=== PATIENT | female | born 1985 | race Two or more races ===

== ENCOUNTER 2021-08-27 12:13 | Emergency (ER) | payer OTHER, SELFPAY ==
[2021-08-27 12:25] VITALS: BP 160/104; PULSE 89; RESP 19; TEMP 36.1; O2SAT 98; BMI 37.1
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
[2021-08-27] MEDS: Ibuprofen 600 MG TABLET PO (13:53)
[2021-08-27] MEDS: Acetaminophen 325 MG TABLET 975 MG PO (13:53)
== END 2021-08-27 14:33 | disposition home or self-care (01) ==
PROVIDERS: Emergency Provider Emergency Medicine Emergency Medical Services; PCP Internal Medicine
DX: S16.1XXA Strain of muscle, fascia and tendon at neck level, initial encounter (principal); S39.012A Strain of muscle, fascia and tendon of lower back, initial encounter; V43.52XA Car driver injured in collision with other type car in traffic accident, initial encounter; Y93.9 Activity, unspecified; Y92.410 Unspecified street and highway as the place of occurrence of the external cause; Y99.9 Unspecified external cause status; F17.210 Nicotine dependence, cigarettes, uncomplicated; Z71.6 Tobacco abuse counseling; Z79.899 Other long term (current) drug therapy
CPT/HCPCS: 99283

== ENCOUNTER 2023-02-16 15:57 | Outpatient (AMB) | payer OTHER, SELFPAY ==
[2023-02-16 15:57] VITALS: BP 130/88; PULSE 73; TEMP 36.7; O2SAT 98; BMI 36.3
--- NOTE | 2023-02-16 15:57 | MHC.OFFWIV ---
Intake Vital Signs 02/16/23 15:57 Height 5 ft 6 in Weight 225 lb BMI 36.3 BP 130/88 Blood Pressure Location Rt brachial Position Sitting Pulse 73 Pulse Source Pulse Oximeter Temp 98.1 F Temp Source Temporal Artery Scan Pulse Oximetry (%) 98 Oxygen Delivery Method Room Air Intake Visit Reasons: EST/headaches/throwing up when coughing Intake Note: pt is here for c/o headache, also throwing when coughing Patient Tobacco Use Status: Current everyday Tobacco user Allergies bupropion [From Wellbutrin] Allergy (Intermediate, Verified 02/16/23 16:22) changes in mood buspirone Allergy (Intermediate, Verified 02/16/23 16:22) changes in mood Medication List - Last Reconciled 02/16/23 by Juancarlos Beck MD amlodipine 5 mg PO BID 90 days blood pressure test kit-large (Quick Response BP Monitor-Large Cuff kit) As directed, check BP twice a day, and log data cholecalciferol (vitamin D3) (Dialyvite Vitamin D) 125 mcg PO DAILY cyclobenzaprine 5 mg PO TID PRN fexofenadine 180 mg PO DAILY PRN 30 days ibuprofen 600 mg PO Q8H PRN pantoprazole 40 mg PO DAILY 90 days paroxetine HCl 40 mg PO DAILY 90 days rizatriptan 10 mg PO Q2-4H PRN 30 days zolpidem 5 mg PO BEDTIME PRN 30 days Do you need a note to return to daycare/school/sports/work: Yes HPI EST/headaches/throwing up when coughing HPI Details Patient presents for a sick visit. Reporting symptoms of sinus congestion, sore throat and difficulty swallowing. Low-grade fever. No family member is sick. No recent travel. Patient reports symptoms of malaise and fatigue. [facility] Medical History Class 2 obesity with body mass index (BMI) of 37.0 to 37.9 in adult Essential hypertension SAM (generalized anxiety disorder) Hand numbness Migraine Mild recurrent major depression Right foot pain Right sided sciatica Surgical History History of appendectomy History of eye surgery History of hernia repair History of tonsillectomy Family History Father Diabetes Hypertension Mother Diabetes Hypertension Asthma Paternal Grandmother Cancer Paternal Grandmother Uterine cancer Maternal Aunt Uterine cancer Maternal Uncle Esophageal cancer Social History Housing: Apartment Alcohol intake: current Alcohol intake frequency: holidays/special occasions only Alcohol type: beer Patient Tobacco Use Status: Current everyday Tobacco user Tobacco use type: Cigarette Cigarettes Per Day: 7 e-Cigarette/Vaping Use: Never Used Second Hand Smoke Exposure: No service: No Current occupational status: employed Current occupational exposures/hazards: No Cognitive needs: No Hearing needs: No Vision needs: Yes Physical Exam Vital Signs: Last Vital Signs Temp 98.1 F 02/16/23 15:57 Pulse 73 02/16/23 15:57 BP 130/88 02/16/23 15:57 Pulse Ox 98 02/16/23 15:57 Oxygen Delivery Method Room Air 02/16/23 15:57 BMI result Body Mass Index 36.3 Const General: cooperative and healthy appearing Nutritional Appearance: well nourished Orientation/consciousness: patient oriented x3 Limitations: no limitations HEENT Head: Yes normal to inspection Eyes General: appearance normal, both eyes and all related structures Neck Neck: Yes normal visual inspection Chest Chest palpation & inspection: normal palpation of entire chest wall Resp Effort & Inspection: normal respiratory effort Neuro General: patient oriented x3 Assessment & Plan Assessment & Plan (1) Upper respiratory tract infection: Code(s): J06.9 - Acute upper respiratory infection, unspecified Plan: Antibiotics ordered. Increase fluid intake. Tylenol for aches and pains. If symptoms worsen, follow-up here for a recheck. Coding Level of Care Code Est Pt Level 3 (61104) Diagnoses Upper respiratory tract infection J06.9
== END 2023-02-16 16:33 | disposition home or self-care (01) ==
PROVIDERS: PCP Internal Medicine; Visit Provider Internal Medicine
DX: J06.9 Acute upper respiratory infection, unspecified (principal)
CPT/HCPCS: 99213

== ENCOUNTER 2023-02-24 13:20 | Outpatient (AMB) | payer OTHER, SELFPAY ==
--- NOTE | 2023-02-24 13:22 | MHC.OFFWIV ---
Intake Vital Signs 02/24/23 13:23 Height 5 ft 6 in Weight 101.605 kg BMI 36.2 BP 180/100 H Blood Pressure Location Lt brachial Position Sitting Pulse 86 Pulse Source Pulse Oximeter Temp 98.5 F Temp Source Oral Pulse Oximetry (%) 99 Oxygen Delivery Method Room Air Intake Visit Reasons: EP, migraine, congestion [phone] Intake Note: Patient here because she has had a cough, congestion, cough, diarrhea and headaches which has all been present for almost 3 weeks. Patient Tobacco Use Status: Current everyday Tobacco user Allergies bupropion [From Wellbutrin] Allergy (Intermediate, Verified 02/24/23 13:24) changes in mood buspirone Allergy (Intermediate, Verified 02/24/23 13:24) changes in mood Do you need a note to return to daycare/school/sports/work: Yes HPI HPI Comments History of Present Illness Details [id number] 37-year-old female presents with fatigue, malaise, dry cough, myalgias, headache, diffuse in nature without vision changes dizziness for the past 2-3 weeks, patient reports she just has not been feeling herself. No known sick contacts. Denies chest pain, shortness of breath, nausea, vomiting, abdominal pain, vision changes, dizziness or weakness. Took Z pack w/ little to no relief. Physical exam benign Likely viral illness versus bronchitis which is most likely. Unlikely intracranial hemorrhage, stroke, posterior stroke, meningitis, encephalitis, no signs of PE or pneumonia on exam. Patient PERC negative Patient hypertensive on exam however likely secondary to acute cough. Plan at this time supportive measures COVID testing. In Educated patient on diagnosis and treatment plan, answered all question, patient verbalizes understanding. At this time patient will be discharged home, advised to return with new or worsening symptoms. Educated on worrisome signs and symptoms and when to return. At this time I feel comfortable discharge home. [facility] Medical History SAM (generalized anxiety disorder) Mild recurrent major depression Hand numbness Right sided sciatica Class 2 obesity with body mass index (BMI) of 37.0 to 37.9 in adult Right foot pain Essential hypertension Migraine Surgical History History of eye surgery History of hernia repair History of tonsillectomy History of appendectomy Family History Father Diabetes Hypertension Mother Diabetes Hypertension Asthma Paternal Grandmother Cancer Paternal Grandmother Uterine cancer Maternal Aunt Uterine cancer Maternal Uncle Esophageal cancer Social History Housing: Apartment Alcohol intake: current Alcohol intake frequency: holidays/special occasions only Alcohol type: beer Patient Tobacco Use Status: Current everyday Tobacco user Tobacco use type: Cigarette Cigarettes Per Day: 7 e-Cigarette/Vaping Use: Never Used Second Hand Smoke Exposure: No service: No Current occupational status: employed Current occupational exposures/hazards: No Cognitive needs: No Hearing needs: No Vision needs: Yes Review of Systems Const Details: Constitutional : No Weight loss, No Fever, No Chills, + Fatigue, + Malaise ENT/Mouth : No sore throat, No Rhinorrhea Eyes: No Eye Pain, No Swelling, No Redness Cardiovascular : No Chest Pain, No SOB, No Dyspnea on Exertion, No Orthopnea, No Edema, No Palpitations Respiratory : + Cough, No Sputum, No Wheezing Gastrointestinal : No Nausea, No Vomiting, No Diarrhea, No Constipation, No abdominal Pain, No Hematochezia, No Melena Genitourinary : No Dysuria, No Urinary Frequency, No Hematuria, Musculoskeletal : No joint pain, No Myalgias, No Joint Swelling Skin : No Skin Lesions, No rash Neuro : No Weakness, No Numbness, No Dizziness, + Headache Psych : No Anxiety/Panic, No Depression All other systems reviewed and are negative All systems reviewed & are unremarkable except as noted in HPI and below Physical Exam Vital Signs: Last Vital Signs Temp 98.5 F 02/24/23 13:23 Pulse 86 02/24/23 13:23 BP 180/100 H 02/24/23 13:23 Pulse Ox 99 02/24/23 13:23 Oxygen Delivery Method Room Air 02/24/23 13:23 BMI result Body Mass Index 36.2 Vital signs stable Appearance: Alert.? Oriented X3.? No acute distress.? Head: Normocephalic, atraumatic, no step-offs or deformities Eyes: Pupils equal, round and reactive to light.? Neck: Normal inspection.? Neck supple.? CVS: Normal heart rate and rhythm.? Pulses normal.? Respiratory: No respiratory distress.? Breath sounds normal.? Abdomen: Soft and nontender.? Skin: Skin warm and dry.? Normal skin color.? Normal skin turgor.? Extremities: No lower extremity edema.? No calf ttp. 5/5 strength to bilateral upper and lower extremities Neuro: Oriented X 3.? No motor deficit.? No sensory deficit. CN 2-12 intact . Ambulating steady gait normal coordination., [id number], [id number]. Assessment & Plan Assessment & Plan (1) Viral illness: Code(s): B34.9 - Viral infection, unspecified (2) Bronchitis: Code(s): J40 - Bronchitis, not specified as acute or chronic Plan Take your medications as prescribed. If you were prescribed antibiotics today, it is important that you take your medication to their entirety, do not skip any doses, do not finish them early. Follow-up with your primary care provider this week. Return to the emergency department with new or worsening symptoms. Such as fevers, chills, chest pain, shortness of breath, nausea, vomiting, dizziness, headache, vision changes, lethargy In case of emergency call 911 Orders: Orders [facility]axNOW Covid-19 Today B34.9 - Viral infection, unspecified Medications: New doxycycline hyclate 100 mg PO BID 14 caps 0RF 7 days prednisone 40 mg (2 x 20 mg) PO DAILY 10 tabs 0RF 5 days albuterol sulfate 90 mcg/actuation 2 puffs inhalation Q6H PRN 6.7 grams 0RF shortness of breath or wheezing Coding Level of Care Code Est Pt Level 3 (60699) Diagnoses Viral illness B34.9 Bronchitis J40
[2023-02-24 13:23] VITALS: BP 180/100; PULSE 86; TEMP 36.9; O2SAT 99; BMI 36.2
== END 2023-02-24 13:44 | disposition home or self-care (01) ==
PROVIDERS: PCP Internal Medicine; Visit Provider Physician Assistant
DX: B34.9 Viral infection, unspecified (principal); J40 Bronchitis, not specified as acute or chronic
CPT/HCPCS: 99213

== ENCOUNTER 2023-03-03 16:44 | Outpatient (AMB) | payer OTHER, SELFPAY ==
[2023-03-03 16:46] VITALS: BP 150/80; PULSE 88; O2SAT 100; BMI 35.9
--- NOTE | 2023-03-03 16:46 | MHC.PC.OV ---
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 Accompanied by: Self / Same As Patient Allergies bupropion [From Wellbutrin] Allergy (Intermediate, Verified 03/03/23 17:05) changes in mood buspirone Allergy (Intermediate, Verified 03/03/23 17:05) changes in mood Medication List - Last Reconciled 03/03/23 by Dori Lee MD albuterol sulfate 90 mcg/actuation 2 puffs inhalation Q6H PRN amlodipine 5 mg PO BID 90 days blood pressure test kit-large (Quick Response BP Monitor-Large Cuff kit) As directed, check BP twice a day, and log data cholecalciferol (vitamin D3) (Dialyvite Vitamin D) 125 mcg PO DAILY fexofenadine 180 mg PO DAILY PRN 30 days pantoprazole 40 mg PO DAILY 90 days paroxetine HCl 40 mg PO DAILY 90 days rizatriptan 10 mg PO Q2-4H PRN 30 days Tobacco use date assessed: 10/14/22 Dental Screening Dental Screen Date: 03/03/23 Did you have a dental visit in the last 12 months?: Yes Did you have a dental problem in the last 6 months where you did not have access to dental care?: No Was dental information given to patient?: Patient has dentist HPI HPI Comments History of Present Illness Details This is a 37-year-old female with hypertension, migraines, chronic GERD and mild recurrent major depression that comes today complaining of cough and chest congestion that has been present for over 2 weeks. She has been at urgent care twice and was prescribed Z-Devan the 1st time and then doxycycline which she Benedict completed. She was diagnosed with bronchitis. Feels markedly improved but still has cough. Blood pressure elevated because she complains of constant nausea and vomiting. Blood pressure will be recheck in 3 weeks by nurse navigator. Migraines stable with triptans as needed. GERD also stable with medications. Depression well controlled with paroxetine. No chest pain or shortness of breath. [facility] Medical History SAM (generalized anxiety disorder) Mild recurrent major depression Hand numbness Right sided sciatica Class 2 obesity with body mass index (BMI) of 37.0 to 37.9 in adult Right foot pain Essential hypertension Migraine Surgical History History of eye surgery History of hernia repair History of tonsillectomy History of appendectomy Family History Father Diabetes Hypertension Mother Diabetes Hypertension Asthma Paternal Grandmother Cancer Paternal Grandmother Uterine cancer Maternal Aunt Uterine cancer Maternal Uncle Esophageal cancer Social History Housing: Apartment Alcohol intake: current Alcohol intake frequency: holidays/special occasions only Alcohol type: beer Patient Tobacco Use Status: Current everyday Tobacco user Tobacco use type: Cigarette Cigarettes Per Day: 7 e-Cigarette/Vaping Use: Never Used Second Hand Smoke Exposure: No service: No Current occupational status: employed Current occupational exposures/hazards: No Cognitive needs: No Hearing needs: No Vision needs: Yes Questionnaire Thrive Questionnaire Date Thrive assessed: 09/03/22 SAM-7 AMB Questionnaire SAM-7 Date SAM - 7 assessed: 09/03/22 Source: Developed by Drs. Jose Glez, Mary Garcia, Evan Hernandez and colleagues, with an educational radha from [employer] Review of Systems Const All systems reviewed & are unremarkable except as noted in HPI and below Eyes Reports no additional complaints, Denies change in vision and Denies other visual disturbances Card Denies chest pain at rest, Denies chest pain with activity, Denies edema, Denies irregular heart rhythm, Denies claudication, Denies dyspnea, Denies dyspnea on exertion, Denies orthopnea, Denies paroxysmal nocturnal dyspnea and Denies slow heart rate Resp Reports cough, Denies dyspnea and Denies dyspnea on exertion GI Denies abdominal pain, Denies change in bowel habits, Denies excessive flatus, Denies nausea and Denies vomiting Denies urinary incontinence, Denies urinary hesitancy and Denies urinary urgency Musc Denies abnormal gait, Denies atrophy, Denies deformity and Denies limited range of motion Skin/Breast Denies bleeding lesions, Denies changing lesions and Denies rash Neuro Denies abnormal gait and Denies lack of coordination Physical exam (Primary Care) Vital Signs: Last Vital Signs Pulse 88 03/03/23 16:46 BP 150/80 H 03/03/23 16:46 Pulse Ox 100 03/03/23 16:46 Oxygen Delivery Method Room Air 03/03/23 16:46 BMI result Body Mass Index 35.9 Tobacco/Smoking Status: Tobacco use Status Tobacco use date assessed 10/14/22 03/03/23 16:55 Patient Tobacco Use Status Current everyday Tobacco 03/03/23 16:55 Tobacco use type Cigarette 03/03/23 16:55 e-Cigarette/Vaping Use Never Used 03/03/23 16:55 Thrive Assessment: Date of Thrive Assessment Date Thrive assessed 09/03/22 03/03/23 16:55 Eyes General: appearance normal, both eyes and all related structures Eyelids: Yes eyelids normal Conjunctivae: conjunctivae normal Neck Neck: Yes normal visual inspection and Yes supple Resp Effort & Inspection: normal respiratory effort Auscultation: clear to auscultation bilaterally Cardio Jugular venous distension: no JVD Rate: regular rate Rhythm: regular rhythm Heart sounds: S1 normal heart sound present and S2 normal heart sound present Extrem General: Yes full ROM Office Procedures Flu Questionnaire Does the patient have a severe egg allergy?: No Does the patient have severe life threatening allergies?: No Does the patient have a fever or illness today?: No Has the patient ever had Guillain-[place] Syndrome?: No Has the patient ever had any past reaction to a flu shot?: No Immunizations flu vacc [id number] 6mos up(PF) 60 mcg(15 mcgx4)/0.5 mL IM syringe Performing Provider: Dori Lee MD Performing Location: [facility] [place] [facility] Documented (not given) by: LIN Garg on 03/03/23 16:56 Reason Not Given: Patient Refused Assessment and Plan Assessment & Plan (1) Mild recurrent major depression: Code(s): F33.0 - Major depressive disorder, recurrent, mild Plan: Continue paroxetine. (2) Essential hypertension: Code(s): I10 - Essential (primary) hypertension Plan: Restart amlodipine. Blood pressure goal is equal or less than 130/80. Recheck blood pressure with nurse navigator in 3 weeks. (3) Chronic GERD: Code(s): K21.9 - Gastro-esophageal reflux disease without esophagitis Plan: Continue PPIs as needed. (4) Migraine: Code(s): G43.909 - Migraine, unspecified, not intractable, without status migrainosus Qualifiers: Migraine type: without aura Status migrainosus presence: with status migrainosus Intractability: intractable Qualified Code(s): G43.011 - Migraine without aura, intractable, with status migrainosus Plan: Continue rizatriptan as needed. Orders: Orders Influenza [id number] Immunization Today Z23 - Encounter for immunization Medications: New benzonatate 100 mg PO TID 5 days PRN 15 caps 0RF cough promethazine 25 mg PO TID 30 days PRN 90 tabs 0RF nausea and vomiting Coding Level of Care Code Est Pt Level 4 (58263) Diagnoses Mild recurrent major depression F33.0 Essential hypertension I10 Chronic GERD K21.9 Intractable migraine without aura and with status migrainosus G43.011 Migraine type: without aura Status migrainosus presence: with status migrainosus Intractability: intractable Time Spent (min) 23
[2023-03-03 19:11] VITALS: BP 150/80
== END 2023-03-03 17:13 | disposition home or self-care (01) ==
PROVIDERS: PCP Internal Medicine; Visit Provider Internal Medicine
DX: F33.0 Major depressive disorder, recurrent, mild (principal); I10 Essential (primary) hypertension; K21.9 Gastro-esophageal reflux disease without esophagitis; G43.011 Migraine without aura, intractable, with status migrainosus; Z23 Encounter for immunization
CPT/HCPCS: 99214

== ENCOUNTER 2023-04-28 16:21 | Outpatient (AMB) | payer OTHER, SELFPAY ==
--- NOTE | 2023-04-28 16:23 | A.OFFPC_ITS ---
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 Required: No Accompanied by: Self / Same As Patient Allergies bupropion [From Wellbutrin] Allergy (Intermediate, Verified 04/28/23 16:35) changes in mood buspirone Allergy (Intermediate, Verified 04/28/23 16:35) changes in mood Medication List - Last Reconciled 04/28/23 by Dori Lee MD albuterol sulfate 90 mcg/actuation 2 puffs inhalation Q6H PRN amlodipine 5 mg PO BID 90 days benzonatate 100 mg PO TID PRN 5 days blood pressure test kit-large (Quick Response BP Monitor-Large Cuff kit) As directed, check BP twice a day, and log data cholecalciferol (vitamin D3) (Dialyvite Vitamin D) 125 mcg PO DAILY fexofenadine 180 mg PO DAILY PRN 30 days pantoprazole 40 mg PO DAILY 90 days paroxetine HCl 40 mg PO DAILY 90 days promethazine 25 mg PO TID PRN 30 days rizatriptan 10 mg PO Q2-4H PRN 30 days Tobacco use date assessed: 10/14/22 Dental Screening Dental Screen Date: 04/28/23 Did you have a dental visit in the last 12 months?: Yes Did you have a dental problem in the last 6 months where you did not have access to dental care?: No Was dental information given to patient?: Patient has dentist HPI HPI Comments History of Present Illness Details This is a 37-year-old female that comes for her physical exam. She has mild recurrent major depression stable with paroxetine but would like decreased. Last Pap smear was over 5 years ago. No chest pain or shortness of breath. [facility] Medical History (Updated 04/28/23 @ 16:46 by Dori Lee MD) SAM (generalized anxiety disorder) Mild recurrent major depression Hand numbness Right sided sciatica Class 2 obesity with body mass index (BMI) of 37.0 to 37.9 in adult Right foot pain Essential hypertension Migraine Surgical History History of eye surgery History of hernia repair History of tonsillectomy History of appendectomy Family History Father Diabetes Hypertension Mother Diabetes Hypertension Asthma Paternal Grandmother Cancer Paternal Grandmother Uterine cancer Maternal Aunt Uterine cancer Maternal Uncle Esophageal cancer Social History (Updated 04/28/23 @ 16:39 by Dori Lee MD) Housing: Apartment Alcohol intake: current Alcohol intake frequency: holidays/special occasions only Alcohol type: beer Patient Tobacco Use Status: Current everyday Tobacco user Tobacco use type: Cigarette Cigarettes Per Day: 3 e-Cigarette/Vaping Use: Never Used Second Hand Smoke Exposure: No service: No Current occupational status: employed Current occupational exposures/hazards: No Cognitive needs: No Hearing needs: No Vision needs: Yes Questionnaire Thrive Questionnaire Date Thrive assessed: 09/03/22 SAM-7 AMB Questionnaire SAM-7 Date SAM - 7 assessed: 09/03/22 Source: Developed by Drs. Jose Glez, Mary Garcia, Evan Hernandez and colleagues, with an educational radha from [employer]. Review of Systems Const All systems reviewed & are unremarkable except as noted in HPI and below Eyes Reports no additional complaints, Denies change in vision and Denies other visual disturbances Card Denies chest pain at rest, Denies chest pain with activity, Denies edema, Denies irregular heart rhythm, Denies claudication, Denies dyspnea, Denies dyspnea on exertion, Denies orthopnea, Denies paroxysmal nocturnal dyspnea and Denies slow heart rate Resp Denies cough, Denies dyspnea and Denies dyspnea on exertion GI Denies abdominal pain, Denies change in bowel habits, Denies excessive flatus, Denies nausea and Denies vomiting Denies urinary incontinence, Denies urinary hesitancy and Denies urinary urgency Musc Denies abnormal gait, Denies atrophy, Denies deformity and Denies limited range of motion Skin/Breast Denies bleeding lesions, Denies changing lesions and Denies rash Neuro Denies abnormal gait and Denies lack of coordination Physical exam (Primary Care) Vital Signs: Last Vital Signs BP 128/90 H 04/28/23 16:25 BMI result Body Mass Index 35.5 Tobacco/Smoking Status: Tobacco use Status Tobacco use date assessed 10/14/22 04/28/23 16:23 Patient Tobacco Use Status Current everyday Tobacco 04/28/23 16:23 Tobacco use type Cigarette 04/28/23 16:23 e-Cigarette/Vaping Use Never Used 04/28/23 16:23 Thrive Assessment: Date of Thrive Assessment Date Thrive assessed 09/03/22 04/28/23 16:23 Const Orientation/consciousness: patient oriented x3 HENMT Head: Yes normal to inspection, Yes normocephalic and Yes atraumatic Ears: external ears normal Eyes General: appearance normal, both eyes and all related structures Eyelids: Yes eyelids normal Conjunctivae: conjunctivae normal Neck Neck: Yes normal visual inspection and Yes supple Resp Effort & Inspection: normal respiratory effort Auscultation: clear to auscultation bilaterally Cardio Jugular venous distension: no JVD Rate: regular rate Rhythm: regular rhythm Heart sounds: S1 normal heart sound present and S2 normal heart sound present GI Inspection: Yes normal to inspection Palpation (GI): Soft to palpation and nontender Auscultation: normal bowel sounds Skin General skin exam: no rashes or lesions noted Neuro General: patient oriented x3 and no focal motor deficits Extrem General: Yes full ROM Psych Appearance: grossly normal Assessment and Plan Assessment & Plan (1) Physical exam: Code(s): Z00.00 - Encounter for general adult medical examination without abnormal findings Plan: Repeat in a year. (2) Mild recurrent major depression: Code(s): F33.0 - Major depressive disorder, recurrent, mild Plan: Decrease paroxetine to 30 mg. Orders: Orders Complete Blood Count Auto Diff Today D64.9 - Anemia, unspecified Comprehensive [place]. Panel Fast Today Z00.00 - Encounter for general adult medical examination without abnormal findings IRON PROFILE Today D64.9 - Anemia, unspecified Vitamin D 25-OH Total Today E55.9 - Vitamin D deficiency, unspecified Referrals [facility] Referral Z12.4 - Encounter for screening for malignant neoplasm of cervix Medications: New tizanidine 4 mg PO BEDTIME 10 days PRN 10 tabs 0RF muscle spasticity M54.31 - Sciatica, right side paroxetine HCl 30 mg PO DAILY 90 days 90 tabs 1RF F33.0 - Major depressive disorder, recurrent, mild Discontinued paroxetine HCl Discontinued Reason: Patient Completed Course 40 mg PO DAILY 90 days 90 tabs 1RF Coding Level of Care Code Est Pt Prev Care 18-39y(38085) Diagnoses Physical exam Z00.00 Mild recurrent major depression F33.0 Time Spent (min) 31
[2023-04-28 16:25] VITALS: BP 128/90; BMI 35.5
== END 2023-04-28 16:48 | disposition home or self-care (01) ==
PROVIDERS: Visit Provider Internal Medicine
DX: Z00.00 Encounter for general adult medical examination without abnormal findings (principal); F33.0 Major depressive disorder, recurrent, mild
CPT/HCPCS: 99395

== ENCOUNTER 2023-07-20 09:12 | Outpatient (AMB) | payer OTHER, SELFPAY ==
--- NOTE | 2023-07-20 10:59 | AM.OFFWIN_ITS ---
Intake Vital Signs 07/20/23 11:09 Weight 218 lb 4 oz BP 140/90 H Blood Pressure Location Rt brachial Position Sitting Pulse 90 Pulse Source Pulse Oximeter Temp 98.7 F Temp Source Oral Pulse Oximetry (%) 100 Oxygen Delivery Method Room Air Intake Visit Reasons: EST/throat and ear pain ([id number]) Intake Note: Patient here for sore throat, bilat ear pain,vomiting, diarrhea and body aches since wednesday. Patient Tobacco Use Status: Current everyday Tobacco user Allergies bupropion [From Wellbutrin] Allergy (Intermediate, Verified 07/20/23 11:00) changes in mood buspirone Allergy (Intermediate, Verified 07/20/23 11:00) changes in mood Do you need a note to return to daycare/school/sports/work: Yes HPI HPI Comments History of Present Illness Details Patient is a 37-year-old female in today for sick visit. Patient states that for the past 9 days she has developed symptoms of sore throat, sinus tenderness, headache, itchy eyes. She has several sick contacts at home with similar symptoms. States that several people have strep throat at home. She has intermittent fever and chills. She has had 2 episodes of vomiting. Denies dizziness, chest pain, shortness a breath, diarrhea, numbness. Will obtain strep swab, upper respiratory swab, blood draw. [facility] Medical History SAM (generalized anxiety disorder) Mild recurrent major depression Hand numbness Right sided sciatica Class 2 obesity with body mass index (BMI) of 37.0 to 37.9 in adult Right foot pain Essential hypertension Migraine Surgical History History of eye surgery History of hernia repair History of tonsillectomy History of appendectomy Family History Father Diabetes Hypertension Mother Diabetes Hypertension Asthma Paternal Grandmother Cancer Paternal Grandmother Uterine cancer Maternal Aunt Uterine cancer Maternal Uncle Esophageal cancer Social History Housing: Apartment Alcohol intake: current Alcohol intake frequency: holidays/special occasions only Alcohol type: beer Patient Tobacco Use Status: Current everyday Tobacco user Tobacco use type: Cigarette Cigarettes Per Day: 3 e-Cigarette/Vaping Use: Never Used Second Hand Smoke Exposure: No service: No Current occupational status: employed Current occupational exposures/hazards: No Cognitive needs: No Hearing needs: No Vision needs: Yes Review of Systems Const Details: Constitutional : No Weight loss, Admits Fever, Admits Chills, No Fatigue, No Malaise ENT/Mouth : Admits sore throat, No Rhinorrhea, Admits ear fullness. Eyes: No Eye Pain, No Swelling, No Redness, Admits itchy eyes. Cardiovascular : No Chest Pain, No SOB, No Dyspnea on Exertion, No Orthopnea, No Edema, No Palpitations Respiratory : No Cough, No Sputum, No Wheezing Gastrointestinal : Admits Nausea, Admits some Vomiting, No Diarrhea, No Constipation, No abdominal Pain, No Hematochezia, No Melena Neuro : No Weakness, No Numbness, No Dizziness, No Headache Psych : No Anxiety/Panic, No Depression All other systems reviewed and are negative Physical Exam Vital Signs: Last Vital Signs Temp 98.7 F 07/20/23 11:09 Pulse 90 07/20/23 11:09 BP 140/90 H 07/20/23 11:09 Pulse Ox 100 07/20/23 11:09 Oxygen Delivery Method Room Air 07/20/23 11:09 Const Other: Appearance: Alert.? Oriented X3.? Head: Normocephalic, atraumatic. Eyes: Pupils equal, round and reactive to light.?No erythema or discharge. ENT: Pharynx erythema, cobblestoned. +Petechiae. TM intact and pearly kenney. Neck: Normal inspection.? Neck supple.?Full ROM. CVS: Normal heart rate and rhythm.? Pulses normal.? Respiratory: No respiratory distress.? Breath sounds normal.? Neuro: Oriented X 3.? No motor deficit.? No sensory deficit. CN 2-12 intact Results AMB Rapid Strep AMB Rapid Strep Negative Last Edit by YNASIA Rios on 07/20/23 11:15 Results Reviewed Results Reviewed: Laboratory Last Values Strep Scn Rapid [facility] Negative 07/20/23 11:14 Assessment & Plan Assessment & Plan (1) Strep throat: Comment: Patient will be given Augmentin, prednisone. Patient has been educated on the side effects of these medications. Code(s): J02.0 - Streptococcal pharyngitis Plan: Take your medications as prescribed. If you were prescribed antibiotics today, it is important that you take your medication to their entirety, do not skip any doses, do not finish them early. Follow-up with your primary care provider this week. Return to the emergency department with new or worsening symptoms. Such as fevers, chills, chest pain, shortness of breath, nausea, vomiting, dizziness, headache, vision changes, lethargy In case of emergency call 911 Plan Patient has been withholding amlodipine for the past several days believing it has caused episodes of vomiting. Patient has been instructed to go back on the amlodipine. Some when the CBC results reflex patient was demonstrated to have hemoglobin of 7.9 hematocrit of 29. This is a change from previous labs drawn several years prior. Patient has been instructed to go to the emergency room she has agreed, the [place] emergency room has been notified of the expect. Orders: Orders AMB Rapid Strep Screen Today Z13.9 - Encounter for screening, unspecified Roslyn Duran PA-C SARS-CoV2/FLU/RSV Today J06.9 - Acute upper respiratory infection, unspecified WAYNE Devries Complete Blood Count Auto Diff Today Z13.0 - Encounter for screening for diseases of the blood and blood-forming organs and certain disorders involving the immune mechanism WAYNE Devries Comprehensive Met. Panel Today Z91.89 - Other specified personal risk factors, not elsewhere classified WAYNE Devries Medications: New prednisone 20 mg PO BID 10 tabs 0RF WAYNE Devries olopatadine 0.1% (Pataday Twice Daily Relief) separate doses by at least 6-8 hours 1 drp ophthalmic (eye) BID 5 mL 0RF WAYNE Devries amoxicillin-pot clavulanate 875-125 mg 1 tab PO Q12H 14 tabs 0RF WAYNE Devries Coding Level of Care Code Est Pt Level 3 (15683) Diagnoses Strep throat J02.0 Time Spent (min) 25
[2023-07-20 11:09] VITALS: BP 140/90; PULSE 90; TEMP 37.1; O2SAT 100
== END 2023-07-20 11:33 | disposition home or self-care (01) ==
PROVIDERS: PCP Internal Medicine; Visit Provider Nurse Practitioner Primary Care
DX: J02.0 Streptococcal pharyngitis (principal)
CPT/HCPCS: 87880; 99213

== ENCOUNTER 2023-07-20 11:30 | Outpatient (REF) | payer OTHER, SELFPAY ==
[2023-07-20 13:34] LABS: Hematocrit 29.3 % (37.0-47.0); Imm Gran Abs Auto 0.03 X10*3/uL (0.00-0.03); Imm Gran Pct Auto 0.4 % (0.0-0.4); Monocytes Percent Auto 9.5 % (2-11)
[2023-07-20 13:36] LABS: Basophils Absolute Auto 0.1 X10*3/uL (0.0-0.2); Basophils Percent Auto 0.9 % (0-2); Eosinophils Absolute Auto 0.2 X10*3/uL (0.0-0.4); Eosinophils Percent Auto 2.9 % (0-4); Hemoglobin 7.6 g/dl (12.0-16.0); Lymphocytes Absolute Auto 1.8 X10*3/uL (1.2-4.9); Lymphocytes Percent Auto 24.3 % (20-40); Mean Corpuscular HGB Conc 25.9 g/dl (31.0-35.0); Mean Corpuscular Hemoglobin 15.3 pg (27.0-33.0); Monocytes Absolute Auto 0.7 X10*3/uL (0.1-1.2); Neutrophils Absolute Auto 4.7 x10*3/uL (2.0-8.3); Platelet Count 489 X10*3/uL (160-400); Red Blood Count 4.98 X10*6/uL (4.20-5.50); Red Cell Distribution Width 21.8 % (11.0-16.0); White Blood Count 7.5 X10*3/uL (4.8-10.8)
[2023-07-20 13:44] LABS: Alanine Aminotransferase 12 U/L (0-31); Albumin Level 4.1 g/dL (3.5-5.0); Alkaline Phosphatase 72 U/L (39-117); Anion Gap 10 (12-20); Aspartate Amino Transferase 14 U/L (5-31); Bilirubin Total 0.2 mg/dL (0.0-1.0); Blood Urea Nitrogen 6 mg/dL (9-16); Calcium 9.6 mg/dL (8.4-10.2); Carbon Dioxide 28 mmol/L (22-29); Chloride 107 mmol/L (96-108); Estimated Glomerular Filt Rate > 60; Glucose Random 130 mg/dL (60-115); Potassium 3.7 mmol/L (3.3-5.1); Sodium 141 mmol/L (135-145); Total Protein 7.4 g/dL (6.5-8.0)
[2023-07-20 13:45] LABS: Mean Corpuscular Volume 58.8 fL (80.0-98.0)
[2023-07-20 15:41] LABS: Influenza A PCR NEGATIVE (Negative); Influenza B PCR NEGATIVE (Negative); Resp Syncy Virus RNA Qual PCR NEGATIVE (Negative); SARS COV2 PCR INHOUSE NEGATIVE (Negative)
== END 2023-07-20 11:31 | disposition home or self-care (01) ==
LOC: HO.HMGCLDS 11:30
PROVIDERS: PCP Internal Medicine; Visit Provider Nurse Practitioner Primary Care
DX: Z11.52 Encounter for screening for COVID-19 (principal); Z20.822 Contact with and (suspected) exposure to COVID-19; Z13.0 Encounter for screening for diseases of the blood and blood-forming organs and certain disorders involving the immune mechanism; J06.9 Acute upper respiratory infection, unspecified; Z91.89 Other specified personal risk factors, not elsewhere classified
CPT/HCPCS: 0241U; 36415; 80053; 85025

== ENCOUNTER 2023-07-21 08:51 | Outpatient (REF) | payer OTHER, SELFPAY ==
[2023-07-21 09:05] LABS: MANUAL DIFF FLAG NO
[2023-07-21 10:39] LABS: Basophils Absolute Auto 0.1 X10*3/uL (0.0-0.2); Basophils Percent Auto 0.8 % (0-2); Eosinophils Absolute Auto 0.2 X10*3/uL (0.0-0.4); Eosinophils Percent Auto 3.7 % (0-4); Hematocrit 28.9 % (37.0-47.0); Hemoglobin 7.4 g/dl (12.0-16.0); Imm Gran Abs Auto 0.02 X10*3/uL (0.00-0.03); Imm Gran Pct Auto 0.3 % (0.0-0.4); Lymphocytes Absolute Auto 1.7 X10*3/uL (1.2-4.9); Lymphocytes Percent Auto 27.9 % (20-40); Mean Corpuscular HGB Conc 25.6 g/dl (31.0-35.0); Mean Corpuscular Hemoglobin 15.4 pg (27.0-33.0); Mean Corpuscular Volume 60.1 fL (80.0-98.0); Mean Platelet Volume 10.6 fL (9.4-12.3); Monocytes Absolute Auto 0.6 X10*3/uL (0.1-1.2); Neutrophils Absolute Auto 3.6 x10*3/uL (2.0-8.3); Neutrophils Percent Auto 58.3 % (45-73); Platelet Count 470 X10*3/uL (160-400); Red Blood Count 4.81 X10*6/uL (4.20-5.50); Red Cell Distribution Width 21.8 % (11.0-16.0); White Blood Count 6.1 X10*3/uL (4.8-10.8)
[2023-07-21 11:13] LABS: Alanine Aminotransferase 12 U/L (0-31); Albumin Level 4.1 g/dL (3.5-5.0); Alkaline Phosphatase 69 U/L (39-117); Anion Gap 12 (12-20); Aspartate Amino Transferase 13 U/L (5-31); Bilirubin Total 0.3 mg/dL (0.0-1.0); Blood Urea Nitrogen 7 mg/dL (9-16); Calcium 9.6 mg/dL (8.4-10.2); Carbon Dioxide 26 mmol/L (22-29); Chloride 106 mmol/L (96-108); Cholesterol 149 mg/dL (<200); Estimated Glomerular Filt Rate > 60; Glucose Fasting 98 mg/dL (60-99); HDL Cholesterol 59 mg/dL (>40); Iron 13 mcg/dL (30-160); LDL Cholesterol Calculated 76 mg/dL (<100); Percent Iron Saturation 4 % (15-50); Potassium 4.2 mmol/L (3.3-5.1); Sodium 140 mmol/L (135-145); Total Iron Binding Capacity 313 mcg/dL (228-428); Total Protein 7.3 g/dL (6.5-8.0); Triglycerides 73 mg/dL (<150); Unsaturated Iron Binding 300 ug/dL
[2023-07-21 11:14] LABS: Vitamin D 25-OH Total 44.1 ng/mL (>30)
[2023-07-21 15:10] LABS: Folate 14.1 ng/mL (> or = 4.0); Vitamin B12 1129 pg/mL (200-900)
== END 2023-07-21 08:52 | disposition home or self-care (01) ==
LOC: HO.LAB 08:51
PROVIDERS: PCP Internal Medicine; Visit Provider Internal Medicine
DX: D64.9 Anemia, unspecified (principal); I10 Essential (primary) hypertension; E53.8 Deficiency of other specified B group vitamins; E55.9 Vitamin D deficiency, unspecified; E78.5 Hyperlipidemia, unspecified
CPT/HCPCS: 36415; 80053; 80061; 82306; 82607; 82746; 83540; 85025

== ENCOUNTER 2023-07-22 16:52 | Outpatient (AMB) | payer OTHER, SELFPAY ==
[2023-07-22 17:06] VITALS: BP 136/82; BMI 35.0
--- NOTE | 2023-07-22 17:06 | A.OFFPC_ITS ---
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 Accompanied by: Daughter Allergies bupropion [From Wellbutrin] Allergy (Intermediate, Verified 07/22/23 17:27) changes in mood buspirone Allergy (Intermediate, Verified 07/22/23 17:27) changes in mood Medication List - Last Reconciled 07/22/23 by Dori Lee MD albuterol sulfate 90 mcg/actuation 2 puffs inhalation Q6H PRN amlodipine 5 mg PO BID 90 days amoxicillin-pot clavulanate 875-125 mg 1 tab PO Q12H benzonatate 100 mg PO TID PRN 5 days blood pressure test kit-large (Quick Response BP Monitor-Large Cuff kit) As directed, check BP twice a day, and log data cholecalciferol (vitamin D3) (Dialyvite Vitamin D) 125 mcg PO DAILY fexofenadine 180 mg PO DAILY PRN 30 days olopatadine 0.1% (Pataday Twice Daily Relief) 1 drp ophthalmic (eye) BID pantoprazole 40 mg PO DAILY 90 days paroxetine HCl 30 mg PO DAILY 90 days prednisone 20 mg PO BID promethazine 25 mg PO TID PRN 30 days rizatriptan 10 mg PO Q2-4H PRN 30 days tizanidine 4 mg PO BEDTIME PRN 10 days Tobacco use date assessed: 07/22/23 Dental Screening Dental Screen Date: 07/22/23 Did you have a dental visit in the last 12 months?: Yes Did you have a dental problem in the last 6 months where you did not have access to dental care?: No Was dental information given to patient?: Patient has dentist HPI HPI Comments History of Present Illness Details This is a 37-year-old female with hypertension, mild recurrent major depression, chronic GERD and iron-deficiency anemia due to chronic blood loss t hat comes today for recent labs with low hemoglobin. Her menses are heavy. I will start her in ferrous sulfate twice a day taking with vitamin-C and will order labs to be repeated in 3 months. Blood pressure stable with medications. Depression well controlled with paroxetine. Chronic GERD also well control with PPIs. Denies any chest pain or shortness of breath. [facility] Medical History (Updated 07/22/23 @ 17:31 by Dori Lee MD) SAM (generalized anxiety disorder) Mild recurrent major depression Hand numbness Right sided sciatica Class 2 obesity with body mass index (BMI) of 37.0 to 37.9 in adult Right foot pain Essential hypertension Migraine Surgical History History of eye surgery History of hernia repair History of tonsillectomy History of appendectomy Family History Father Diabetes Hypertension Mother Diabetes Hypertension Asthma Paternal Grandmother Cancer Paternal Grandmother Uterine cancer Maternal Aunt Uterine cancer Maternal Uncle Esophageal cancer Social History Housing: Apartment Alcohol intake: current Alcohol intake frequency: holidays/special occasions only Alcohol type: beer Patient Tobacco Use Status: Current everyday Tobacco user Tobacco use type: Cigarette Cigarettes Per Day: 3 e-Cigarette/Vaping Use: Never Used Second Hand Smoke Exposure: No service: No Current occupational status: employed Current occupational exposures/hazards: No Cognitive needs: No Hearing needs: No Vision needs: Yes Questionnaire PHQ-9 Over the last 2 weeks, how often have you been bothered by any of the following problems? 1. Little interest or pleasure in doing things: several days 2. Feeling down, depressed, or hopeless: several days 3. Trouble falling or staying asleep, or sleeping too much: more than half the days 4. Feeling tired or having little energy: more than half the days 5. Poor appetite or overeating: not at all 6. Feeling bad about yourself - or that you are a failure or have let yourself or your family down: not at all 7. Trouble concentrating on things, such as reading the newspaper or watching television: not at all 8. Moving or speaking so slowly that other people could have noticed. Or the opposite - being so fidgety or restless that you have been moving around a lot more than usual: not at all 9. Thoughts that you would be better off or of hurting yourself in some way: not at all Total score: 6 Depression Screening Interpretation: Positive Depression Screening Follow-up: Existing condition and In treatment Depression Screening Done: Yes 48304 - PHQ-9 Billing: Yes Source: Developed by Drs. Jose Glez, Mary Garcia, Evan Hernandez and colleagues, with an educational radha from [employer]. Thrive Questionnaire Date Thrive assessed: 09/03/22 SAM-7 AMB Questionnaire SAM-7 Date SAM - 7 assessed: 07/22/23 Feeling nervous, anxious, or on edge: 2 = More than half the days Not being able to stop or control worryin = Several days Worrying too much about different things: 2 = More than half the days Trouble relaxin = Not at all Being so restless that it is hard to sit still: 0 = Not at all Becoming easily annoyed or irritable: 2 = More than half the days Feeling afraid as if something awful might happen: 2 = More than half the days Total SAM-7 score (0-4 normal; 5-9 mild; 10-14 moderate; 15-21 severe): 9 Source: Developed by Drs. Jose Glez, Mary Garcia, Evan Hernandez and colleagues, with an educational radha from [employer]. SAM-7 Assessment Billing SAM-7 Assessment Tool: SAM-7 Assessment 89390 Review of Systems Const All systems reviewed & are unremarkable except as noted in HPI and below Eyes Reports no additional complaints, Denies change in vision and Denies other visual disturbances Card Denies chest pain at rest, Denies chest pain with activity, Denies edema, Denies irregular heart rhythm, Denies claudication, Denies dyspnea, Denies dyspnea on exertion, Denies orthopnea, Denies paroxysmal nocturnal dyspnea and Denies slow heart rate Resp Denies cough, Denies dyspnea and Denies dyspnea on exertion GI Denies abdominal pain, Denies change in bowel habits, Denies excessive flatus, Denies nausea and Denies vomiting Denies urinary incontinence, Denies urinary hesitancy and Denies urinary urgency Physical exam (Primary Care) Vital Signs: Last Vital Signs BP 136/82 07/22/23 17:06 BMI result Body Mass Index 35.0 Tobacco/Smoking Status: Tobacco use Status Tobacco use date assessed 07/22/23 07/22/23 17:14 Patient Tobacco Use Status Current everyday Tobacco 07/22/23 17:08 Tobacco use type Cigarette 07/22/23 17:08 e-Cigarette/Vaping Use Never Used 07/22/23 17:08 PHQ-9: PHQ-9 Score PHQ-9: Total score 6 07/22/23 17:35 Depression Screening Interpretation: Positive Depression Screening Follow-up: Existing condition and In treatment Thrive Assessment: Date of Thrive Assessment Date Thrive assessed 09/03/22 07/22/23 17:08 Eyes General: appearance normal, both eyes and all related structures Eyelids: Yes eyelids normal Conjunctivae: conjunctivae normal Neck Neck: Yes normal visual inspection and Yes supple Resp Effort & Inspection: normal respiratory effort Auscultation: clear to auscultation bilaterally Cardio Jugular venous distension: no JVD Rate: regular rate Rhythm: regular rhythm Heart sounds: S1 normal heart sound present and S2 normal heart sound present Extrem General: Yes full ROM Psych Appearance: grossly normal Assessment and Plan Assessment & Plan (1) Iron deficiency anemia due to chronic blood loss: Code(s): D50.0 - Iron deficiency anemia secondary to blood loss (chronic) Plan: Start ferrous sulfate. Repeat labs in 3 months. (2) Mild recurrent major depression: Code(s): F33.0 - Major depressive disorder, recurrent, mild Plan: Continue paroxetine. (3) Chronic GERD: Code(s): K21.9 - Gastro-esophageal reflux disease without esophagitis Plan: Continue PPIs. (4) Essential hypertension: Code(s): I10 - Essential (primary) hypertension Plan: Continue amlodipine. Blood pressure goal is equal or less than 130/80. Orders: Orders Hemoglobin Electrophoresis 07/22/23 D50.0 - Iron deficiency anemia secondary to blood loss (chronic) IRON PROFILE 07/22/23 D64.9 - Anemia, unspecified Celiac Disease Panel 07/22/23 D50.0 - Iron deficiency anemia secondary to blood loss (chronic) Complete Blood Count Auto Diff 07/22/23 D64.9 - Anemia, unspecified Medications: New ferrous sulfate 325 mg PO BID 90 days 180 tabs 1RF D50.0 - Iron deficiency anemia secondary to blood loss (chronic) Coding Level of Care Code Est Pt Level 4 (27255) Diagnoses Iron deficiency anemia due to chronic blood loss D50.0 Mild recurrent major depression F33.0 Chronic GERD K21.9 Essential hypertension I10 Additional Codes SAM-7 Assessment Billing - SAM-7 Assessment Tool: SAM-7 Assessment 27343 ([id number]) Time Spent (min) 24
== END 2023-07-22 17:36 | disposition home or self-care (01) ==
PROVIDERS: PCP Internal Medicine; Visit Provider Internal Medicine
DX: D50.0 Iron deficiency anemia secondary to blood loss (chronic) (principal); F33.0 Major depressive disorder, recurrent, mild; K21.9 Gastro-esophageal reflux disease without esophagitis; I10 Essential (primary) hypertension
CPT/HCPCS: 99214

== ENCOUNTER 2023-10-29 15:53 | Outpatient (REF) | payer OTHER, SELFPAY ==
[2023-10-29 16:06] LABS: MANUAL DIFF FLAG NO
[2023-10-29 18:21] LABS: Alanine Aminotransferase 15 U/L (0-31); Albumin Level 4.3 g/dL (3.5-5.0); Alkaline Phosphatase 66 U/L (39-117); Anion Gap 11 (12-20); Aspartate Amino Transferase 14 U/L (5-31); Bilirubin Total 0.2 mg/dL (0.0-1.0); Blood Urea Nitrogen 8 mg/dL (9-16); Calcium 9.7 mg/dL (8.4-10.2); Carbon Dioxide 25 mmol/L (22-29); Chloride 108 mmol/L (96-108); Estimated Glomerular Filt Rate > 60; Glucose Fasting 195 mg/dL (60-99); Iron 50 mcg/dL (30-160); Percent Iron Saturation 17 % (15-50); Potassium 3.4 mmol/L (3.3-5.1); Sodium 141 mmol/L (135-145); Total Iron Binding Capacity 289 mcg/dL (228-428); Total Protein 7.5 g/dL (6.5-8.0); Unsaturated Iron Binding 239 ug/dL
[2023-10-29 18:34] LABS: Basophils Absolute Auto 0.1 X10*3/uL (0.0-0.2); Basophils Percent Auto 1.1 % (0-2); Eosinophils Absolute Auto 0.3 X10*3/uL (0.0-0.4); Eosinophils Percent Auto 5.7 % (0-4); Hematocrit 44.2 % (37.0-47.0); Hemoglobin 13.1 g/dl (12.0-16.0); Imm Gran Abs Auto 0.01 X10*3/uL (0.00-0.03); Imm Gran Pct Auto 0.2 % (0.0-0.4); Lymphocytes Absolute Auto 1.8 X10*3/uL (1.2-4.9); Lymphocytes Percent Auto 31.5 % (20-40); Mean Corpuscular HGB Conc 29.6 g/dl (31.0-35.0); Mean Corpuscular Hemoglobin 22.3 pg (27.0-33.0); Mean Corpuscular Volume 75.3 fL (80.0-98.0); Monocytes Absolute Auto 0.5 X10*3/uL (0.1-1.2); Monocytes Percent Auto 8.2 % (2-11); Neutrophils Percent Auto 53.3 % (45-73); Platelet Count 374 X10*3/uL (160-400); Red Blood Count 5.87 X10*6/uL (4.20-5.50); Red Cell Distribution Width 18.9 % (11.0-16.0); White Blood Count 5.6 X10*3/uL (4.8-10.8)
[2023-10-29 18:39] LABS: Vitamin D 25-OH Total 41.3 ng/mL (>30)
[2023-11-01 12:52] LABS: Hematocrit 42.5 % (35.0-45.0); Hemoglobin 12.7 g/dL (11.7-15.5); MCH 22.2 pg (27.0-33.0); MCV 74.2 fL (80.0-100.0); RBC 5.73 Million/uL (3.80-5.10); RDW 17.6 % (11.0-15.0)
[2023-11-01 22:09] LABS: Immunoglobulin A 383 mg/dL (47-310); Transglutaminase IgA <1.0 U/mL
== END 2023-10-29 15:54 | disposition home or self-care (01) ==
LOC: HO.LAB 15:53
PROVIDERS: PCP Internal Medicine; Visit Provider Internal Medicine
DX: Z00.00 Encounter for general adult medical examination without abnormal findings (principal); D64.9 Anemia, unspecified; D50.0 Iron deficiency anemia secondary to blood loss (chronic); E55.9 Vitamin D deficiency, unspecified
CPT/HCPCS: 36415; 80053; 82306; 82784; 83020; 83540; 85014; 85018; 85025; 85041; 86364

== ENCOUNTER 2023-11-02 16:24 | Outpatient (AMB) | payer OTHER, SELFPAY ==
--- NOTE | 2023-11-02 16:27 | MHC.PC.OV ---
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 Required: No Accompanied by: Self / Same As Patient Allergies bupropion [From Wellbutrin] Allergy (Intermediate, Verified 11/02/23 16:51) changes in mood buspirone Allergy (Intermediate, Verified 11/02/23 16:51) changes in mood Medication List - Last Reconciled 11/02/23 by Dori Lee MD albuterol sulfate 90 mcg/actuation 2 puffs inhalation Q6H PRN amlodipine 5 mg PO BID 90 days blood pressure test kit-large (Quick Response BP Monitor-Large Cuff kit) As directed, check BP twice a day, and log data cholecalciferol (vitamin D3) (Dialyvite Vitamin D) 125 mcg PO DAILY ferrous sulfate 325 mg PO BID 90 days fexofenadine 180 mg PO DAILY PRN 30 days olopatadine 0.1% (Pataday Twice Daily Relief) 1 drp ophthalmic (eye) BID pantoprazole 40 mg PO DAILY 90 days paroxetine HCl 30 mg PO DAILY 90 days tizanidine 4 mg PO BEDTIME PRN 10 days Tobacco use date assessed: 07/22/23 Dental Screening Dental Screen Date: 07/22/23 HPI HPI Comments History of Present Illness Details This is a 38-year-old female with hypertension, mild major depression and chronic GERD that comes today complaining about right knee pain that started few months ago with no previous trauma and also insomnia with difficulty staying asleep. Blood pressure stable. Depression well controlled with paroxetine. GERD stable with PPIs. Will do x-rays of the right knee and refer her to ortho. I will start her on zolpidem to sleep. Side effects were discussed. She also has impaired glucose tolerance and denies any polyuria, polydipsia or unintentional weight loss. A1c normal today. She is also obese with a BMI of 35.5 and was advised to diet and exercise to reach BMI goal less than 30. She admits not being compliant with diet. [facility] Medical History (Updated 11/02/23 @ 17:05 by Dori Lee MD) SAM (generalized anxiety disorder) Mild recurrent major depression Hand numbness Right sided sciatica Class 2 obesity with body mass index (BMI) of 37.0 to 37.9 in adult Right foot pain Essential hypertension Migraine Surgical History History of eye surgery History of hernia repair History of tonsillectomy History of appendectomy Family History Father Diabetes Hypertension Mother Diabetes Hypertension Asthma Paternal Grandmother Cancer Paternal Grandmother Uterine cancer Maternal Aunt Uterine cancer Maternal Uncle Esophageal cancer Social History Housing: Apartment Alcohol intake: current Alcohol intake frequency: holidays/special occasions only Alcohol type: beer Patient Tobacco Use Status: Current everyday Tobacco user Tobacco use type: Cigarette Cigarettes Per Day: 3 e-Cigarette/Vaping Use: Never Used Second Hand Smoke Exposure: No service: No Current occupational status: employed Current occupational exposures/hazards: No Cognitive needs: No Hearing needs: No Vision needs: Yes Questionnaire Thrive Questionnaire Date Thrive assessed: 09/03/22 SAM-7 AMB Questionnaire SAM-7 Date SAM - 7 assessed: 07/22/23 Source: Developed by Drs. Jose Glez, Mray Garcia, Evan Hernandez and colleagues, with an educational radha from [employer]. Review of Systems Const All systems reviewed & are unremarkable except as noted in HPI and below Eyes Reports no additional complaints, Denies change in vision and Denies other visual disturbances Card Denies chest pain at rest, Denies chest pain with activity, Denies edema, Denies irregular heart rhythm, Denies claudication, Denies dyspnea, Denies dyspnea on exertion, Denies orthopnea, Denies paroxysmal nocturnal dyspnea and Denies slow heart rate Resp Denies cough, Denies dyspnea and Denies dyspnea on exertion Physical exam (Primary Care) Vital Signs: Last Vital Signs BP 122/86 11/02/23 16:28 BMI result Body Mass Index 35.5 Tobacco/Smoking Status: Tobacco use Status Tobacco use date assessed 07/22/23 11/02/23 16:27 Patient Tobacco Use Status Current everyday Tobacco 11/02/23 16:27 Tobacco use type Cigarette 11/02/23 16:27 e-Cigarette/Vaping Use Never Used 11/02/23 16:27 Thrive Assessment: Date of Thrive Assessment Date Thrive assessed 09/03/22 11/02/23 16:27 Resp Effort & Inspection: normal respiratory effort Auscultation: clear to auscultation bilaterally Cardio Jugular venous distension: no JVD Rate: regular rate Rhythm: regular rhythm Heart sounds: S1 normal heart sound present and S2 normal heart sound present Extrem General: Yes full ROM Results AMB Hemoglobin A1c AMB Hemoglobin A1c 5.4 % Last Edit by LIN Garg on 11/02/23 17:08 Results Reviewed Results Reviewed: Laboratory Last Values Hgb A1c (Clinic) 5.4 % (4.0-6.0) 11/02/23 17:06 Assessment and Plan Assessment & Plan (1) Mild recurrent major depression: Code(s): F33.0 - Major depressive disorder, recurrent, mild Plan: Continue paroxetine. (2) Essential hypertension: Code(s): I10 - Essential (primary) hypertension Plan: Continue amlodipine. Blood pressure goal is equal or less than 130/80. (3) Chronic GERD: Code(s): K21.9 - Gastro-esophageal reflux disease without esophagitis Plan: Continue PPIs. (4) Insomnia: Code(s): G47.00 - Insomnia, unspecified Plan: Start zolpidem. (5) Right knee pain: Code(s): M25.561 - Pain in right knee Plan: X-ray ordered. Referred to Ortho. Orders: Orders Complete Blood Count Auto Diff 4 Months D64.9 - Anemia, unspecified IRON PROFILE 4 Months D64.9 - Anemia, unspecified Lipid Panel 4 Months E78.5 - Hyperlipidemia, unspecified Comprehensive [place]. Panel Fast 4 Months R73.02 - Impaired glucose tolerance (oral) XR knee RT 2V Today M25.561 - Pain in right knee AMB Hemoglobin A1c Today R73.02 - Impaired glucose tolerance (oral) Referrals Orthopedics Referral M25.561 - Pain in right knee Medications: New magnesium oxide 400 mg PO BEDTIME 90 caps 1RF 90 days zolpidem may repeat once if no response in 30-60 minutes 5 mg PO BEDTIME PRN 30 tabs 0RF insomnia 30 days Refilled tizanidine 4 mg PO BEDTIME PRN 10 tabs 0RF muscle spasticity 10 days M54.31 - Sciatica, right side fexofenadine 180 mg PO DAILY PRN 30 tabs 6RF allergy symptoms 30 days Discontinued ferrous sulfate Discontinued Reason: Patient Completed Course 325 mg PO BID 90 days 180 tabs 1RF D50.0 - Iron deficiency anemia secondary to blood loss (chronic) Coding Level of Care Code Est Pt Level 4 (45549) Complex EM visit Add On G2211 Diagnoses Mild recurrent major depression F33.0 Essential hypertension I10 Chronic GERD K21.9 Insomnia G47.00 Right knee pain M25.561 Time Spent (min) 25
[2023-11-02 16:28] VITALS: BP 122/86; BMI 35.5
== END 2023-11-02 17:05 | disposition home or self-care (01) ==
PROVIDERS: PCP Internal Medicine; Visit Provider Internal Medicine
DX: F33.0 Major depressive disorder, recurrent, mild (principal); I10 Essential (primary) hypertension; K21.9 Gastro-esophageal reflux disease without esophagitis; G47.00 Insomnia, unspecified; M25.561 Pain in right knee; R73.02 Impaired glucose tolerance (oral)
CPT/HCPCS: 83036; 99214; G2211

== ENCOUNTER 2023-12-21 10:18 | Outpatient (REF) | payer OTHER, SELFPAY ==
--- NOTE | ~2023-12-21 | XR_ITS ---
EXAMINATION: XR KNEE, RIGHT CLINICAL INFORMATION: Pain in the right knee. COMPARISON: None available. TECHNIQUE: Three views of the right knee. FINDINGS: No fracture or malalignment. Joint spaces appear relatively well-preserved. Bone mineralization is normal. Soft tissues are unremarkable. No joint effusion. Small enthesopathic spur at the quadriceps tendon insertion on the patella. XR/XR knee RT 3V IMPRESSION: No acute osseous findings at the right knee. Knee joint appears relatively well-preserved.
== END 2023-12-21 10:19 | disposition home or self-care (01) ==
LOC: HO.HOSX 10:18
PROVIDERS: Visit Provider Physician Assistant
DX: M25.561 Pain in right knee (principal)
CPT/HCPCS: 73562

== ENCOUNTER 2023-12-21 10:45 | Outpatient (AMB) | payer OTHER, SELFPAY ==
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
== END 2023-12-21 11:35 | disposition home or self-care (01) ==
PROVIDERS: PCP Internal Medicine; Visit Provider Physician Assistant
DX: M54.16 Radiculopathy, lumbar region (principal)
CPT/HCPCS: 99203

== ENCOUNTER 2024-01-26 11:26 | Outpatient (AMB) | payer OTHER, SELFPAY ==
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
[2024-01-26 11:32] VITALS: BMI 35.5
== END 2024-01-26 11:54 | disposition home or self-care (01) ==
PROVIDERS: PCP Internal Medicine; Visit Provider Physical Medicine & Rehabilitation
DX: M79.18 Myalgia, other site (principal); G57.01 Lesion of sciatic nerve, right lower limb; M70.61 Trochanteric bursitis, right hip
CPT/HCPCS: 99203

== ENCOUNTER 2024-01-26 11:26 | Outpatient (REF) | payer OTHER, SELFPAY | END 2024-01-26 11:27 | disposition home or self-care (01) | LOC: HO.HOSX 11:26 | PROVIDERS: PCP Internal Medicine; Visit Provider Physical Medicine & Rehabilitation | DX: Z13.89 Encounter for screening for other disorder (principal) ==

== ENCOUNTER 2024-02-02 13:23 | Outpatient (AMB) | payer OTHER, SELFPAY ==
--- NOTE | 2024-02-02 13:23 | MHC.OFFVIS ---
Intake Visit Reasons: Inj-Right hip injection-30 min appointment Intake Note: Khalida is a 38 year old female who presents today for a right hip injection. Allergies bupropion [From Wellbutrin] Allergy (Intermediate, Verified 02/02/24 13:24) changes in mood buspirone Allergy (Intermediate, Verified 02/02/24 13:24) changes in mood Medication List - Last Reconciled 02/02/24 by Maddie Odell MD albuterol sulfate 90 mcg/actuation 2 puffs inhalation Q6H PRN amlodipine 5 mg PO BID 90 days blood pressure test kit-large (Quick Response BP Monitor-Large Cuff kit) As directed, check BP twice a day, and log data cholecalciferol (vitamin D3) (Dialyvite Vitamin D) 125 mcg PO DAILY fexofenadine 180 mg PO DAILY PRN 30 days magnesium oxide 400 mg PO BEDTIME 90 days olopatadine 0.1% (Pataday Twice Daily Relief) 1 drp ophthalmic (eye) BID pantoprazole 40 mg PO DAILY 90 days paroxetine HCl 30 mg PO DAILY 90 days tizanidine 4 mg PO BEDTIME PRN 10 days zolpidem 5 mg PO BEDTIME PRN 30 days PFSH Medical History SAM (generalized anxiety disorder) Mild recurrent major depression Hand numbness Right sided sciatica Class 2 obesity with body mass index (BMI) of 37.0 to 37.9 in adult Right foot pain Essential hypertension Migraine Surgical History History of eye surgery History of hernia repair History of tonsillectomy History of appendectomy Family History Father Diabetes Hypertension Mother Diabetes Hypertension Asthma Paternal Grandmother Cancer Paternal Grandmother Uterine cancer Maternal Aunt Uterine cancer Maternal Uncle Esophageal cancer Social History Housing: Apartment Alcohol intake: current Alcohol intake frequency: holidays/special occasions only Alcohol type: beer Patient Tobacco Use Status: Current everyday Tobacco user Tobacco use type: Cigarette Cigarettes Per Day: 3 e-Cigarette/Vaping Use: Never Used Second Hand Smoke Exposure: No service: No Current occupational status: employed Current occupation: [employer] Current occupational exposures/hazards: No Cognitive needs: No Hearing needs: No Vision needs: Yes Office Procedures Joint Injection/Aspiration Joint Injection/Aspiration Details: Consent obtained. Patient lies on left unaffected side with lower leg flexed and upper leg extended. Right side tender area over the right greater trochanter is identified and marked. Area is cleansed with betadine solution. Using a 27 gauge needle, 3 ml of 2% lidocaine is injected, with the needle perpendicular to center of tender area. Then, using a spinal needle, 40 mg Kenalog is injected perpendicularly at center of tender area and slightly touching bone of greater trochanter. Patient tolerated procedure well without complications. Post-injection instructions given. Coding 10702 - Large joint Procedure code (CPT) selection complete Assessment & Plan Assessment & Plan (1) Trochanteric bursitis: Code(s): M70.60 - Trochanteric bursitis, unspecified hip Category: Medical Qualifiers: Laterality: right Qualified Code(s): M70.61 - Trochanteric bursitis, right hip Plan Patient was very anxious but she tolerated the procedure well. Trochanteric injection done today. Did not do trigger point injection as patient was already very anxious with needles. She does have SI joint tenderness for which I may have to refer her to pain management for, explained that injection for SI joints are done under fluoro or ultrasound. Assessment and plan discussed with patient, and patient was agreeable. All questions were answered thoroughly. Follow up in 2-4 weeks. Maddie Odell MD, RAHAT Board Certified, [place] [employer] and [employer] (ABPMR) Board Certified, [place] [employer] (ABEM) Orders: Orders AMB Joint Injection/Aspiration Today M70.61 - Trochanteric bursitis, right hip Coding Level of Care Code Procedure Only Diagnoses Trochanteric bursitis of right hip M70.61 Laterality: right CPT Codes Coding - 38313 Large joint: 69553 - Large joint ([id number])
== END 2024-02-02 13:49 | disposition home or self-care (01) ==
PROVIDERS: PCP Internal Medicine; Visit Provider Physical Medicine & Rehabilitation
DX: M70.61 Trochanteric bursitis, right hip (principal)
CPT/HCPCS: 20610

== ENCOUNTER 2024-02-02 13:23 | Outpatient (REF) | payer OTHER, SELFPAY ==
--- NOTE | ~2024-02-02 | XR_ITS ---
EXAMINATION: XR LUMBOSACRAL SPINE CLINICAL INFORMATION: Dorsalgia COMPARISON: None available. TECHNIQUE: AP and lateral views of the lumbar spine and lateral view of the lumbosacral junction. FINDINGS: Mild to moderate degenerative disc disease at L5-S1 with loss of intervertebral disc height and endplate osteophytes. Minimal degenerative disc disease L4-L5. Vertebral body heights are normal. No spondylolisthesis. Facet joints are normal. SI joints are unremarkable. Soft tissues are normal. XR/XR lumbar spine 2-3V IMPRESSION: Mild to moderate degenerative disc disease at L5-S1. Electronically signed by: Carter Vance MD 02/15/2024 11:25 PM EDT
--- NOTE | ~2024-02-02 | XR_ITS ---
EXAMINATION: XR HIP, RIGHT CLINICAL INFORMATION: Pain in the right hip. COMPARISON: None available. TECHNIQUE: AP and frog-leg lateral views of the right hip. FINDINGS: No fracture. Alignment is anatomic. Hip joint space is maintained. Mild acetabular over-coverage is suspected at the right hip, though a PA view of the pelvis would be more specific for this. Right SI joint is normal. Soft tissues are unremarkable. XR/XR hip RT min 2V IMPRESSION: 1. No acute osseous findings. 2. Mild acetabular over-coverage is suspected at the right hip, though a PA view of the pelvis would be more specific for assessment of predisposing features of pincer-type TROY. Electronically signed by: Carter Vance MD 02/15/2024 11:47 PM EDT
== END 2024-02-02 13:24 | disposition home or self-care (01) ==
LOC: HO.XRAY 13:23
PROVIDERS: PCP Internal Medicine; Visit Provider Physical Medicine & Rehabilitation
DX: M54.9 Dorsalgia, unspecified (principal); M25.551 Pain in right hip; M70.61 Trochanteric bursitis, right hip
CPT/HCPCS: 20610; 72100; 73502; J3301

== ENCOUNTER 2024-03-02 11:02 | Outpatient (AMB) | payer OTHER, SELFPAY ==
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
[2024-03-02 11:10] VITALS: BMI 35.5
== END 2024-03-02 14:24 | disposition home or self-care (01) ==
PROVIDERS: PCP Internal Medicine; Visit Provider Physical Medicine & Rehabilitation
DX: M51.26 Other intervertebral disc displacement, lumbar region (principal); G57.01 Lesion of sciatic nerve, right lower limb; M70.61 Trochanteric bursitis, right hip
CPT/HCPCS: 99213

== ENCOUNTER → 2024-03-02 11:02 | Outpatient (BNVA) | payer OTHER, SELFPAY | PROVIDERS: PCP Internal Medicine; Visit Provider Physical Medicine & Rehabilitation ==

== ENCOUNTER 2024-03-16 13:26 | Outpatient (REF) | payer OTHER, SELFPAY ==
[2024-03-16 13:36] LABS: MANUAL DIFF FLAG NO
[2024-03-16 14:14] LABS: Basophils Absolute Auto 0.1 X10*3/uL (0.0-0.2); Eosinophils Absolute Auto 0.2 X10*3/uL (0.0-0.4); Eosinophils Percent Auto 3.4 % (0-4); Hematocrit 36.5 % (37.0-47.0); Hemoglobin 10.7 g/dl (12.0-16.0); Imm Gran Abs Auto 0.02 X10*3/uL (0.00-0.03); Imm Gran Pct Auto 0.3 % (0.0-0.4); Lymphocytes Absolute Auto 1.9 X10*3/uL (1.2-4.9); Lymphocytes Percent Auto 27.4 % (20-40); Mean Corpuscular HGB Conc 29.3 g/dl (31.0-35.0); Mean Corpuscular Hemoglobin 20.5 pg (27.0-33.0); Mean Corpuscular Volume 69.9 fL (80.0-98.0); Mean Platelet Volume 10.9 fL (9.4-12.3); Monocytes Absolute Auto 0.7 X10*3/uL (0.1-1.2); Monocytes Percent Auto 9.3 % (2-11); Neutrophils Absolute Auto 4.2 x10*3/uL (2.0-8.3); Neutrophils Percent Auto 58.6 % (45-73); Platelet Count 548 X10*3/uL (160-400); Red Blood Count 5.22 X10*6/uL (4.20-5.50); Red Cell Distribution Width 16.8 % (11.0-16.0); White Blood Count 7.1 X10*3/uL (4.8-10.8)
[2024-03-16 14:56] LABS: Alanine Aminotransferase 24 U/L (0-31); Albumin Level 4.1 g/dL (3.5-5.0); Alkaline Phosphatase 73 U/L (39-117); Anion Gap 12 (12-20); Aspartate Amino Transferase 21 U/L (5-31); Bilirubin Total 0.4 mg/dL (0.0-1.0); Blood Urea Nitrogen 6 mg/dL (9-16); Calcium 9.4 mg/dL (8.4-10.2); Carbon Dioxide 25 mmol/L (22-29); Chloride 108 mmol/L (96-108); Cholesterol 203 mg/dL (<200); Estimated Glomerular Filt Rate > 60; Glucose Fasting 99 mg/dL (60-99); HDL Cholesterol 73 mg/dL (>40); Iron 20 mcg/dL (30-160); LDL Cholesterol Calculated 109 mg/dL (<100); Percent Iron Saturation 6 % (15-50); Potassium 3.9 mmol/L (3.3-5.1); Sodium 141 mmol/L (135-145); Total Iron Binding Capacity 326 mcg/dL (228-428); Total Protein 7.4 g/dL (6.5-8.0); Triglycerides 106 mg/dL (<150); Unsaturated Iron Binding 306 ug/dL
== END 2024-03-16 13:27 | disposition home or self-care (01) ==
LOC: HO.LAB 13:26
PROVIDERS: Visit Provider Internal Medicine
DX: E78.5 Hyperlipidemia, unspecified (principal); R73.02 Impaired glucose tolerance (oral); D64.9 Anemia, unspecified
CPT/HCPCS: 36415; 80053; 80061; 83540; 85025

== ENCOUNTER 2024-03-20 17:03 | Outpatient (AMB) | payer OTHER, SELFPAY ==
--- NOTE | 2024-03-20 17:05 | A.OFFPC_ITS ---
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 Accompanied by: Self / Same As Patient Allergies bupropion [From Wellbutrin] Allergy (Intermediate, Verified 03/20/24 17:14) changes in mood buspirone Allergy (Intermediate, Verified 03/20/24 17:14) changes in mood Medication List - Last Reconciled 03/20/24 by Dori Lee MD albuterol sulfate 90 mcg/actuation 2 puffs inhalation Q6H PRN amlodipine 5 mg PO BID 90 days blood pressure test kit-large (Quick Response BP Monitor-Large Cuff kit) As directed, check BP twice a day, and log data cholecalciferol (vitamin D3) (Dialyvite Vitamin D) 125 mcg PO DAILY fexofenadine 180 mg PO DAILY PRN 30 days magnesium oxide 400 mg PO BEDTIME 90 days olopatadine 0.1% (Pataday Twice Daily Relief) 1 drp ophthalmic (eye) BID pantoprazole 40 mg PO DAILY 90 days paroxetine HCl 30 mg PO DAILY 90 days tizanidine 4 mg PO BEDTIME PRN 10 days zolpidem 5 mg PO BEDTIME PRN 30 days Tobacco use date assessed: 07/22/23 Dental Screening Dental Screen Date: 03/20/24 Did you have a dental visit in the last 12 months?: Yes Did you have a dental problem in the last 6 months where you did not have access to dental care?: No Was dental information given to patient?: Patient has dentist HPI HPI Comments History of Present Illness Details This is a 38 year old female with hypertension, mild recurrent major depression, anxiety and GERD that comes today for follow up on her conditions. BP borderline normal to elevated. Depression with anxiety controlled with medications. GERD stable with PPIs. Labs were discussed. She has anemia and will restart ferrous sulfate. Also has elevated cholesterol but her [place] risk score is 2.1%. No chest pain or shortness of breath. [facility] Medical History SAM (generalized anxiety disorder) Mild recurrent major depression Hand numbness Right sided sciatica Class 2 obesity with body mass index (BMI) of 37.0 to 37.9 in adult Right foot pain Essential hypertension Migraine Surgical History History of eye surgery History of hernia repair History of tonsillectomy History of appendectomy Family History Father Diabetes Hypertension Mother Diabetes Hypertension Asthma Paternal Grandmother Cancer Paternal Grandmother Uterine cancer Maternal Aunt Uterine cancer Maternal Uncle Esophageal cancer Social History Housing: Apartment Alcohol intake: current Alcohol intake frequency: holidays/special occasions only Alcohol type: beer Patient Tobacco Use Status: Current everyday Tobacco user Tobacco use type: Cigarette Cigarettes Per Day: 3 e-Cigarette/Vaping Use: Never Used Second Hand Smoke Exposure: No service: No Current occupational status: employed Current occupation: [employer] Current occupational exposures/hazards: No Cognitive needs: No Hearing needs: No Vision needs: Yes Questionnaire Thrive Questionnaire Date Thrive assessed: 09/03/22 SAM-7 AMB Questionnaire SAM-7 Date SAM - 7 assessed: 07/22/23 Source: Developed by Drs. Jose Glez, Mary Garcia, Evan Hernandez and colleagues, with an educational radha from [employer]. Review of Systems Const All systems reviewed & are unremarkable except as noted in HPI and below Card Denies chest pain at rest, Denies chest pain with activity, Denies edema, Denies irregular heart rhythm, Denies claudication, Denies dyspnea, Denies dyspnea on exertion, Denies orthopnea, Denies paroxysmal nocturnal dyspnea and Denies slow heart rate Resp Denies cough, Denies dyspnea and Denies dyspnea on exertion Physical exam (Primary Care) Vital Signs: Last Vital Signs BP 136/90 H 03/20/24 17:06 BMI result Body Mass Index 36.8 BMI Assessment/Plan discussion: High BMI High, discussed plan: lifestyle, weight reduction, dietary and physical activity Tobacco/Smoking Status: Tobacco use Status Tobacco use date assessed 07/22/23 03/20/24 17:09 Patient Tobacco Use Status Current everyday Tobacco 03/20/24 17:09 Tobacco use type Cigarette 03/20/24 17:09 e-Cigarette/Vaping Use Never Used 03/20/24 17:09 Are you ready to quit: No Tobacco cessation counseling provided: Yes Items discussed: Nicotine replacement and QuitWorks Relapse Prevention: discussed the importance of a supportive environment, discussed extending NRT, discussed negative mood or depression after quitting, weight gain after smoking is common and discussed dietary, exercise and/or lifestyle changes Number of minutes spent counselin CPT code: 88160 - 4-10 Minutes Thrive Assessment: Date of Thrive Assessment Date Thrive assessed 09/03/22 03/20/24 17:09 Resp Effort & Inspection: normal respiratory effort Auscultation: clear to auscultation bilaterally Cardio Jugular venous distension: no JVD Rate: regular rate Rhythm: regular rhythm Heart sounds: S1 normal heart sound present and S2 normal heart sound present Extrem General: Yes full ROM Office Procedures Flu Questionnaire Does the patient have a severe egg allergy?: No Immunizations Fluarix Triv 6050-1215 (PF) 45 mcg (15 mcg x 3)/0.5 mL IM syringe Performing Provider: Dori Lee MD [facility] Documented (not given) by: LIN Garg on 03/20/24 17:10 Reason Not Given: Patient Refused Coding Level of Care Code Est Pt Level 4 (69732) Complex EM visit Add On G2211 Diagnoses Essential hypertension I10 Mild recurrent major depression F33.0 Chronic GERD K21.9 SAM (generalized anxiety disorder) F41.1 Additional Codes Vital Signs *Quality* - CPT code: 20150 - 4-10 Minutes ([id number]) Time Spent (min) 25 Assessment & Plan Assessment & Plan (1) Essential hypertension: Code(s): I10 - Essential (primary) hypertension Category: Medical Plan: Continue Amlodipine. BP goal is equal or less than 130/80. (2) Mild recurrent major depression: Code(s): F33.0 - Major depressive disorder, recurrent, mild Category: Medical Plan: Continue Paroxetine. (3) Chronic GERD: Code(s): K21.9 - Gastro-esophageal reflux disease without esophagitis Category: Medical Plan: Continue PPIs. (4) SAM (generalized anxiety disorder): Code(s): F41.1 - Generalized anxiety disorder Category: Medical Plan: Continue buspirone. Orders: Orders Influenza [id number] Immunization Today Z23 - Encounter for immunization Medications: New ferrous sulfate 325 mg PO DAILY 90 tabs 1RF 90 days
[2024-03-20 17:06] VITALS: BP 136/90; BMI 36.8
[2024-03-20 19:43] VITALS: BP 130/88
== END 2024-03-20 17:23 | disposition home or self-care (01) ==
LOC: HO.HMCH 17:04
PROVIDERS: PCP Internal Medicine; Visit Provider Internal Medicine
DX: I10 Essential (primary) hypertension (principal); F33.0 Major depressive disorder, recurrent, mild; K21.9 Gastro-esophageal reflux disease without esophagitis; F41.1 Generalized anxiety disorder; Z23 Encounter for immunization

== ENCOUNTER → 2024-03-20 17:03 | Outpatient (BNVA) | payer OTHER, SELFPAY | PROVIDERS: PCP Internal Medicine; Visit Provider Internal Medicine | DX: I10 Essential (primary) hypertension (principal); F33.0 Major depressive disorder, recurrent, mild; K21.9 Gastro-esophageal reflux disease without esophagitis; F41.9 Anxiety disorder, unspecified; Z79.899 Other long term (current) drug therapy; Z28.21 Immunization not carried out because of patient refusal | CPT/HCPCS: 90471 ==

== ENCOUNTER 2024-04-24 17:41 | Outpatient (REF) | payer OTHER, SELFPAY | END 2024-04-24 17:42 | disposition home or self-care (01) | LOC: HO.MRI 17:41 | PROVIDERS: PCP Internal Medicine; Visit Provider Physical Medicine & Rehabilitation | DX: M51.26 Other intervertebral disc displacement, lumbar region (principal); M70.61 Trochanteric bursitis, right hip; G57.01 Lesion of sciatic nerve, right lower limb | CPT/HCPCS: 72148 ==

== ENCOUNTER → 2024-04-24 17:42 | Outpatient (BNV) | payer OTHER, SELFPAY | PROVIDERS: PCP Internal Medicine; Visit Provider Radiology Diagnostic Radiology | DX: M51.26 Other intervertebral disc displacement, lumbar region (principal) | CPT/HCPCS: 72148 ==

== ENCOUNTER 2024-05-12 10:51 | Outpatient (AMB) | payer OTHER, SELFPAY ==
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
== END 2024-05-12 10:57 | disposition home or self-care (01) ==
LOC: HO.HOS 10:51
PROVIDERS: PCP Internal Medicine; Visit Provider Physical Medicine & Rehabilitation
DX: M51.26 Other intervertebral disc displacement, lumbar region (principal); M70.61 Trochanteric bursitis, right hip
CPT/HCPCS: 99214

== ENCOUNTER 2024-06-16 08:56 | Outpatient (AMB) | payer OTHER, SELFPAY ==
[2024-06-16 09:10] VITALS: BMI 36.8
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
== END 2024-06-16 09:29 | disposition home or self-care (01) ==
PROVIDERS: PCP Internal Medicine; Visit Provider Physical Medicine & Rehabilitation
DX: M51.26 Other intervertebral disc displacement, lumbar region (principal); M54.16 Radiculopathy, lumbar region
CPT/HCPCS: 99214

== ENCOUNTER 2024-07-25 17:06 | Outpatient (AMB) | payer OTHER, SELFPAY ==
--- NOTE | 2024-07-25 17:07 | MHC.PC.OV ---
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 Accompanied by: Self / Same As Patient Allergies bupropion [From Wellbutrin] Allergy (Intermediate, Verified 07/25/24 17:17) changes in mood buspirone Allergy (Intermediate, Verified 07/25/24 17:17) changes in mood Medication List - Last Reconciled 07/25/24 by Dori Lee MD albuterol sulfate 90 mcg/actuation 2 puffs inhalation Q6H PRN amlodipine 10 mg PO DAILY 90 days blood pressure test kit-large (Quick Response BP Monitor-Large Cuff kit) As directed, check BP twice a day, and log data cholecalciferol (vitamin D3) (Dialyvite Vitamin D) 125 mcg PO DAILY ferrous sulfate 325 mg PO DAILY 90 days fexofenadine 180 mg PO DAILY PRN 30 days ibuprofen 800 mg PO Q8H lorazepam (Ativan) 0.5 mg PO BID PRN 1 day magnesium oxide 400 mg PO BEDTIME 90 days olopatadine 0.1% (Pataday Twice Daily Relief) 1 drp ophthalmic (eye) BID pantoprazole 40 mg PO DAILY 90 days paroxetine HCl 30 mg PO DAILY 90 days tizanidine 4 mg PO BEDTIME PRN 10 days zolpidem 5 mg PO BEDTIME PRN 30 days Tobacco use date assessed: 07/25/24 Dental Screening Dental Screen Date: 07/25/24 Did you have a dental visit in the last 12 months?: Yes Did you have a dental problem in the last 6 months where you did not have access to dental care?: No Was dental information given to patient?: Patient has dentist HPI HPI Comments History of Present Illness Details The patient is a 38-year-old female presenting with chronic back pain associated with degenerative disc disease, which was confirmed via an MRI. She reports that the pain affects her ability to perform daily activities and is not adequately relieved by her current use of Ibuprofen; an epidural injection is planned. She has used muscle relaxants with success in managing her pain but has currently run out of her prescription. The patient's anxiety and depression have been ongoing and are currently being managed with Paroxetine, recently increased from 30 mg to 40 mg per day due to persistent symptoms. She maintains her hypertension with Amlodipine 10 mg daily and manages allergic rhinitis with Fexofenadine. The patient takes Vitamin D and iron supplementation due to past lab findings of low iron and manages reflux with Pantoprazole. She smokes regularly but is not presently motivated to stop. [facility] Medical History SAM (generalized anxiety disorder) Mild recurrent major depression Hand numbness Right sided sciatica Class 2 obesity with body mass index (BMI) of 37.0 to 37.9 in adult Right foot pain Essential hypertension Migraine Surgical History History of eye surgery History of hernia repair History of tonsillectomy History of appendectomy Family History Father Diabetes Hypertension Mother Diabetes Hypertension Asthma Paternal Grandmother Cancer Paternal Grandmother Uterine cancer Maternal Aunt Uterine cancer Maternal Uncle Esophageal cancer Social History Housing: Apartment Alcohol intake: current Alcohol intake frequency: holidays/special occasions only Alcohol type: beer Patient Tobacco Use Status: Current everyday Tobacco user Tobacco use type: Cigarette Cigarettes Per Day: 3 e-Cigarette/Vaping Use: Never Used Second Hand Smoke Exposure: No service: No Current occupational status: employed Current occupation: [employer] Current occupational exposures/hazards: No Cognitive needs: No Hearing needs: No Vision needs: Yes Questionnaire PHQ-9 Over the last 2 weeks, how often have you been bothered by any of the following problems? 1. Little interest or pleasure in doing things: more than half the days 2. Feeling down, depressed, or hopeless: more than half the days 3. Trouble falling or staying asleep, or sleeping too much: more than half the days 4. Feeling tired or having little energy: more than half the days 5. Poor appetite or overeating: several days 6. Feeling bad about yourself - or that you are a failure or have let yourself or your family down: not at all 7. Trouble concentrating on things, such as reading the newspaper or watching television: nearly every day 8. Moving or speaking so slowly that other people could have noticed. Or the opposite - being so fidgety or restless that you have been moving around a lot more than usual: several days 9. Thoughts that you would be better off or of hurting yourself in some way: not at all Total score: 13 Depression Screening Interpretation: Positive Depression Screening Follow-up: Existing condition, In treatment and Follow-up Visit Requested Depression Screening Done: Yes 35550 - PHQ-9 Billing: Yes Source: Developed by Drs. Jose Glez, Mary Garcia, Evan Hernandez and colleagues, with an educational radha from [employer]. Thrive Questionnaire Date Thrive assessed: 07/25/24 I am a: Patient What is your living situation today?: I have a steady place to live Within the past 12 months, did the food you bought not last and you didn't have the money to get more?: Never true Within the past 12 months, did you worry whether your food would run out before you got money to buy more?: Never true Do you have trouble paying for medicines?: No Do you have trouble getting transportation to medical appointments?: No Do you have trouble paying your heating and electricity bill?: No Do you have trouble taking care of your child, family member or friend?: No Do you have trouble with day-to-day activities such as bathing, preparing meals, shopping, managing finances, etc.?: No Are you currently unemployed and looking for a job?: No Are you interested in more education?: No Please select the resources that you would like help with: None Currently or been in a relationship where the following occur: No concerns reported THRIVE Score: 0 AUDIT C Alcohol Use Questionnaire (AUDIT-C) 1. How often do you have a drink containing alcohol?: Monthly or less 2. How many drinks containing alcohol do you have on a typical day when you are drinking?: 1 or 2 3. How often do you have six or more drinks on one occasion?: Never Total Score: 1 Score Reviewed/Action Taken: No SAM-7 AMB Questionnaire SAM-7 Date SAM - 7 assessed: 07/25/24 Feeling nervous, anxious, or on edge: 2 = More than half the days Not being able to stop or control worryin = Several days Worrying too much about different things: 2 = More than half the days Trouble relaxin = More than half the days Being so restless that it is hard to sit still: 2 = More than half the days Becoming easily annoyed or irritable: 3 = Nearly every day Feeling afraid as if something awful might happen: 0 = Not at all Total SAM-7 score (0-4 normal; 5-9 mild; 10-14 moderate; 15-21 severe): 12 Source: Developed by Drs. Jose Glez, Mary Garcia, Evan Hernandez and colleagues, with an educational radha from [employer]. SAM-7 Assessment Billing SAM-7 Assessment Tool: SAM-7 Assessment 65720 Review of Systems Const All systems reviewed & are unremarkable except as noted in HPI and below Card Denies chest pain at rest, Denies chest pain with activity, Denies edema, Denies irregular heart rhythm, Denies claudication, Denies dyspnea, Denies dyspnea on exertion, Denies orthopnea, Denies paroxysmal nocturnal dyspnea and Denies slow heart rate Resp Denies cough, Denies dyspnea and Denies dyspnea on exertion GI Denies abdominal pain, Denies change in bowel habits, Denies excessive flatus, Denies nausea and Denies vomiting Denies urinary incontinence, Denies urinary hesitancy and Denies urinary urgency Physical exam (Primary Care) Vital Signs: Last Vital Signs BP 140/82 H 07/25/24 17:09 BMI result Body Mass Index 36.8 BMI Assessment/Plan discussion: High BMI High, discussed plan: lifestyle, weight reduction, dietary and physical activity Tobacco/Smoking Status: Tobacco use Status Tobacco use date assessed 07/25/24 07/25/24 17:17 Patient Tobacco Use Status Current everyday Tobacco 07/25/24 17:16 Tobacco use type Cigarette 07/25/24 17:16 e-Cigarette/Vaping Use Never Used 07/25/24 17:16 PHQ-9: PHQ-9 Score PHQ-9: Total score 13 07/25/24 17:20 Depression Screening Interpretation: Positive Depression Screening Follow-up: Existing condition, In treatment and Follow-up Visit Requested Thrive Assessment: Date of Thrive Assessment Date Thrive assessed 07/25/24 07/25/24 17:16 Currently or been in a relationship where the following occur: No concerns reported Resp Effort & Inspection: normal respiratory effort Auscultation: clear to auscultation bilaterally Cardio Jugular venous distension: no JVD Rate: regular rate Rhythm: regular rhythm Heart sounds: S1 normal heart sound present and S2 normal heart sound present Extrem General: Yes full ROM Coding Level of Care Code Est Pt Level 4 (22320) Complex EM visit Add On G2211 Diagnoses Spondylosis of lumbar region without myelopathy or radiculopathy M47.816 Mild recurrent major depression F33.0 SAM (generalized anxiety disorder) F41.1 Essential hypertension I10 Additional Codes SAM-7 Assessment Billing - SAM-7 Assessment Tool: SAM-7 Assessment 85749 ([id number]) PHQ-9 - 91040 - PHQ-9 Billing: Yes ([id number]) Time Spent (min) 23 Assessment & Plan Assessment & Plan (1) Spondylosis of lumbar region without myelopathy or radiculopathy: Code(s): M47.816 - Spondylosis without myelopathy or radiculopathy, lumbar region Category: Medical (2) Mild recurrent major depression: Code(s): F33.0 - Major depressive disorder, recurrent, mild Category: Medical (3) SAM (generalized anxiety disorder): Code(s): F41.1 - Generalized anxiety disorder Category: Medical (4) Essential hypertension: Code(s): I10 - Essential (primary) hypertension Category: Medical Plan The patient will increase her dosage of Paroxetine to 40 mg for better management of anxiety and depression. An epidural injection is planned for pain relief from degenerative disc disease, and Diclofenac, taken with food, is advised as an alternative to Ibuprofen. Tizanidine has been previously prescribed for pain episodes. Essential hypertension management with Amlodipine remains unchanged, while continuing iron supplementation and follow-up labs are planned in 6 months. She is advised to consider smoking cessation with motivational strategies discussed. Patient was informed and verbally consented to the use of an ambient scribe for clinic note documentation during this visit. I discussed with the patient the management plan for her degenerative disc disease, including the upcoming epidural injection and the rationale for switching to Diclofenac for better pain relief. We addressed the adjustment of Paroxetine for her psychiatric symptoms and identified lifestyle strategies for smoking cessation. I emphasized the importance of taking Diclofenac with food to minimize gastrointestinal side effects and confirmed the schedule for follow-up laboratory tests in 6 months to monitor iron levels. Orders: Orders Complete Blood Count Auto Diff 6 Months D64.9 - Anemia, unspecified Lipid Panel 6 Months E78.5 - Hyperlipidemia, unspecified, R73.02 - Impaired glucose tolerance (oral) IRON PROFILE 6 Months D64.9 - Anemia, unspecified Vitamin D 25-OH Total 6 Months E55.9 - Vitamin D deficiency, unspecified Vitamin B12 and Folate 6 Months E53.8 - Deficiency of other specified B group vitamins Comprehensive [place]. Panel Fast 6 Months R73.02 - Impaired glucose tolerance (oral) Medications: New paroxetine HCl 40 mg PO DAILY 90 tabs 1RF 90 days diclofenac sodium 75 mg PO BID PRN 60 tabs 0RF pain 30 days Changed From tizanidine 4 mg PO BEDTIME 10 days PRN 10 tabs 0RF muscle spasticity M54.31 - Sciatica, right side To tizanidine 4 mg PO BEDTIME PRN 30 tabs 0RF muscle spasticity 30 days M54.31 - Sciatica, right side Discontinued paroxetine HCl Discontinued Reason: Patient Completed Course 30 mg PO DAILY 90 days 90 tabs 1RF F33.0 - Major depressive disorder, recurrent, mild Patient Instructions: - Take Paroxetine 40 mg daily as prescribed. - Prepare and attend the epidural injection appointment on September 05. - Start Diclofenac for pain, ensuring the medication is taken with food. - Use Tizanidine for acute pain episodes as needed. - Continue the current regimen for hypertension, iron deficiency, and acid reflux. - Consider smoking cessation strategies and continue monitoring. - Follow up in 6 months for repeated laboratory tests to check iron levels.
[2024-07-25 17:09] VITALS: BP 140/82; BMI 36.8
== END 2024-07-25 17:32 | disposition home or self-care (01) ==
PROVIDERS: PCP Internal Medicine; Visit Provider Internal Medicine
DX: M47.816 Spondylosis without myelopathy or radiculopathy, lumbar region (principal); F33.0 Major depressive disorder, recurrent, mild; F41.1 Generalized anxiety disorder; I10 Essential (primary) hypertension

== ENCOUNTER → 2024-07-25 17:06 | Outpatient (BNVA) | payer OTHER, SELFPAY | PROVIDERS: PCP Internal Medicine; Visit Provider Internal Medicine | DX: M47.816 Spondylosis without myelopathy or radiculopathy, lumbar region (principal); F33.0 Major depressive disorder, recurrent, mild; F41.1 Generalized anxiety disorder; I10 Essential (primary) hypertension | CPT/HCPCS: 96127 ==

== ENCOUNTER 2024-09-05 06:29 | Outpatient (REF) | payer OTHER, SELFPAY ==
--- NOTE | ~2024-09-05 | FL_ITS ---
EXAMINATION: XR FLUOROSCOPY WITH IMAGES CLINICAL INFORMATION: Right trochanteric bursitis, pain management. COMPARISON: 02/02/2024 TECHNIQUE: Fluoroscopy provided to: Dr. Alfaro Fluoroscopy time: 0.2 minutes DAP: 0.0356 mGycm2 Images: 1 FINDINGS: Solitary spot image obtained during pain management injection right hip greater trochanteric bursa. Refer to the full operative report for details. FL/FL guidance in treatment room IMPRESSION: Fluoroscopic guidance. Electronically signed by: Carter Knutson MD 09/06/2024 01:48 PM EDT
== END 2024-09-05 06:30 | disposition home or self-care (01) ==
LOC: CF 06:29
PROVIDERS: Visit Provider Anesthesiology
DX: M70.61 Trochanteric bursitis, right hip (principal)
CPT/HCPCS: 20610; 77002; J2795; J3301

== ENCOUNTER 2024-09-05 11:02 | Outpatient (AMB) | payer OTHER, SELFPAY ==
[2024-09-05 11:12] VITALS: BP 137/76; PULSE 80; RESP 16; O2SAT 100
--- NOTE | 2024-09-05 11:12 | MHC.OFFVIS ---
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: No Allergies bupropion [From Wellbutrin] Allergy (Intermediate, Verified 09/05/24 11:12) changes in mood buspirone Allergy (Intermediate, Verified 09/05/24 11:12) changes in mood Medication List - Last Reconciled 09/05/24 by Halle Song LPN albuterol sulfate 90 mcg/actuation 2 puffs inhalation Q6H PRN amlodipine 10 mg PO DAILY 90 days blood pressure test kit-large (Quick Response BP Monitor-Large Cuff kit) As directed, check BP twice a day, and log data cholecalciferol (vitamin D3) (Dialyvite Vitamin D) 125 mcg PO DAILY diclofenac sodium 75 mg PO BID PRN 30 days ferrous sulfate 325 mg PO DAILY 90 days fexofenadine 180 mg PO DAILY PRN 30 days ibuprofen 800 mg PO Q8H lorazepam (Ativan) 0.5 mg PO BID PRN 1 day magnesium oxide 400 mg PO BEDTIME 90 days olopatadine 0.1% (Pataday Twice Daily Relief) 1 drp ophthalmic (eye) BID pantoprazole 40 mg PO DAILY 90 days paroxetine HCl 40 mg PO DAILY 90 days tizanidine 4 mg PO BEDTIME PRN 30 days zolpidem 5 mg PO BEDTIME PRN 30 days PFSH Medical History SAM (generalized anxiety disorder) Mild recurrent major depression Hand numbness Right sided sciatica Class 2 obesity with body mass index (BMI) of 37.0 to 37.9 in adult Right foot pain Essential hypertension Migraine Surgical History History of eye surgery History of hernia repair History of tonsillectomy History of appendectomy Family History Father Diabetes Hypertension Mother Diabetes Hypertension Asthma Paternal Grandmother Cancer Paternal Grandmother Uterine cancer Maternal Aunt Uterine cancer Maternal Uncle Esophageal cancer Social History Housing: Apartment Alcohol intake: current Alcohol intake frequency: holidays/special occasions only Alcohol type: beer Patient Tobacco Use Status: Current everyday Tobacco user Tobacco use type: Cigarette Cigarettes Per Day: 3 e-Cigarette/Vaping Use: Never Used Second Hand Smoke Exposure: No service: No Current occupational status: employed Current occupation: [employer] Current occupational exposures/hazards: No Cognitive needs: No Hearing needs: No Vision needs: Yes Physical Exam Vital Signs: Last Vital Signs Pulse 81 09/05/24 11:26 Resp 16 09/05/24 11:26 BP 148/80 H 09/05/24 11:26 Pulse Ox 97 09/05/24 11:26 Oxygen Delivery Method Room Air 09/05/24 11:26 Assessment & Plan Assessment & Plan (1) Trochanteric bursitis, right hip: Code(s): M70.61 - Trochanteric bursitis, right hip Category: Medical Plan Right trochanteric bursa steroid injection. Informed consent was explained to the patient. All questions were explained and? answered. The patient was taken inside the operating room where she was positioned left lateral decubitus on the operating table.? Time-out was performed delineating correct site, side, the nature of the procedure, patient's allergy, preoperative antibiotic if needed.? All operating room staff was participating in OR time-out procedure.? The patient stated his name. Non dependent right hip was prepped with ChloraPrep and draped with sterile towels.? The C-arm was brought over the operating field and the picture of right trochanter was demonstrated on the screen. 22 gauge 3-1/2 inch needle was inserted through the skin and advanced toward the trochanter under AP and lateral views. When the tip of the needle on the anterior posterior view was few mm away from the most superior and lateral point of the trochanter the injection of the location was performed comprising of ropivacaine 0.5% 4 mL and Kenalog 40 mg. The needle was removed, sterile Band-Aid was applied. Patient tolerated the procedure well. Was taken outside of the operating room to recovery room where she recovered uneventfully. Orders: Orders US guide needle placement Today Claritza Chow APRN, [employer] JUDGE M70.61 - Trochanteric bursitis, right hip [place] guidance in treatment room Today Eduardo Alfaro MD M70.61 - Trochanteric bursitis, right hip Coding Level of Care Code Procedure Only Diagnoses Trochanteric bursitis, right hip M70.61
[2024-09-05 11:26] VITALS: BP 148/80; PULSE 81; RESP 16; O2SAT 97
== END 2024-09-05 11:26 | disposition home or self-care (01) ==
LOC: HO.PMCPRC 11:02
PROVIDERS: PCP Internal Medicine; Visit Provider Anesthesiology
DX: M70.61 Trochanteric bursitis, right hip (principal)
CPT/HCPCS: 20610; 77002

== ENCOUNTER 2024-09-20 13:30 | Outpatient (AMB) | payer OTHER, SELFPAY ==
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
[2024-09-20 13:36] VITALS: BP 146/81; PULSE 87; RESP 16; O2SAT 96; BMI 36.6
== END 2024-09-20 13:43 | disposition home or self-care (01) ==
LOC: HO.PMC 13:30
PROVIDERS: PCP Internal Medicine; Visit Provider Anesthesiology
DX: M70.61 Trochanteric bursitis, right hip (principal); G89.4 Chronic pain syndrome; M47.816 Spondylosis without myelopathy or radiculopathy, lumbar region; M51.16 Intervertebral disc disorders with radiculopathy, lumbar region
CPT/HCPCS: 99213

== ENCOUNTER → 2024-09-20 13:30 | Outpatient (BNVA) | payer OTHER, SELFPAY | PROVIDERS: PCP Internal Medicine; Visit Provider Anesthesiology ==

== ENCOUNTER 2024-11-14 06:24 | Outpatient (REF) | payer OTHER, SELFPAY | END 2024-11-14 06:25 | disposition home or self-care (01) | LOC: CF 06:24 | PROVIDERS: Visit Provider Anesthesiology | DX: Z13.89 Encounter for screening for other disorder (principal) ==

== ENCOUNTER 2024-11-27 15:38 | Outpatient (AMB) | payer OTHER, SELFPAY ==
--- NOTE | 2024-11-27 16:01 | MHC.PC.OV ---
Vital Signs 11/27/24 16:02 Height 5 ft 6 in Weight 231 lb BMI 37.3 BP 142/90 H Blood Pressure Location Lt brachial Position Sitting Intake Visit Reasons: talk menstrual back pain depretion Intake Note: Patient here to discuss menstrual cycle, back pain, weight gain, depression with anxiety Biomedical Scientist Required: No Accompanied by: Self / Same As Patient Allergies bupropion (From Wellbutrin) Allergy (Intermediate, Verified 11/27/24 16:11) changes in mood buspirone Allergy (Intermediate, Verified 11/27/24 16:11) changes in mood Medication List - Last Reconciled 11/27/24 by Dori Lee MD albuterol sulfate 90 mcg/actuation 2 puffs inhalation Q6H PRN amlodipine 10 mg PO DAILY 90 days blood pressure test kit-large (Quick Response BP Monitor-Large Cuff kit) As directed, check BP twice a day, and log data cholecalciferol (vitamin D3) (Dialyvite Vitamin D) 125 mcg PO DAILY ferrous sulfate 325 mg PO DAILY 90 days fexofenadine 180 mg PO DAILY PRN 30 days ibuprofen 800 mg PO Q8H lorazepam (Ativan) 1 mg PO DAILY PRN 1 day lorazepam (Ativan) 1 mg PO ONCE magnesium oxide 400 mg PO BEDTIME 90 days olopatadine 0.1% (Pataday Twice Daily Relief) 1 drp ophthalmic (eye) BID pantoprazole 40 mg PO DAILY 90 days paroxetine HCl 40 mg PO DAILY 90 days zolpidem 5 mg PO BEDTIME PRN 30 days Tobacco use date assessed: 07/25/24 Dental Screening Dental Screen Date: 07/25/24 HPI HPI Comments History of Present Illness Details The patient is a 39-year-old female presenting with management of multiple chronic conditions including hypertension, depression, and menstrual irregularities. The patient has a history of essential hypertension, with a current reading of 142/90 mmHg, which she notes is better than previous measurements. She is currently taking amlodipine 10 mg for blood pressure management. The patient reports experiencing depressive symptoms, for which she is prescribed paroxetine 40 mg. She has been crying frequently due to changes at work, which have been stressful and have exacerbated her symptoms. She is considering taking time off work to focus on her mental health and is open to seeing a psychologist. The patient reports irregular menstrual cycles, occurring every two weeks and lasting for ten days, which is a change from her normal pattern. She has not yet seen a automation operator for this issue. The patient has a history of sciatica, with previous interventions including hip injections that provided minimal relief. She expresses a desire to explore alternative treatments that do not involve spinal injections. The patient is also experiencing weight gain and is interested in weight management options. She is not diabetic, which limits her access to certain nutritional services. FOR[facility]LY [facility] Medical History (Updated 11/27/24 @ 16:18 by Dori Lee MD) SAM (generalized anxiety disorder) Mild recurrent major depression Hand numbness Right sided sciatica Class 2 obesity with body mass index (BMI) of 37.0 to 37.9 in adult Right foot pain Essential hypertension Migraine Surgical History History of eye surgery History of hernia repair History of tonsillectomy History of appendectomy Family History Father Diabetes Hypertension Mother Diabetes Hypertension Asthma Paternal Grandmother Cancer Paternal Grandmother Uterine cancer Maternal Aunt Uterine cancer Maternal Uncle Esophageal cancer Social History Housing: Apartment Alcohol intake: current Alcohol intake frequency: holidays/special occasions only Alcohol type: beer Patient Tobacco Use Status: Current everyday Tobacco user Tobacco use type: Cigarette Cigarettes Per Day: 3 e-Cigarette/Vaping Use: Never Used Second Hand Smoke Exposure: No service: No Current occupational status: employed Current occupation: [employer] Current occupational exposures/hazards: No Cognitive needs: No Hearing needs: No Vision needs: Yes Questionnaire Thrive Questionnaire Date Thrive assessed: 07/25/24 SAM-7 AMB Questionnaire SAM-7 Date SAM - 7 assessed: 07/25/24 Source: Developed by Drs. Jose Glez, Mary Garcia, Evan Hernandez and colleagues, with an educational radha from [employer]. Review of Systems Const All systems reviewed & are unremarkable except as noted in HPI and below Card Denies chest pain at rest, Denies chest pain with activity, Denies edema, Denies irregular heart rhythm, Denies claudication, Denies dyspnea, Denies dyspnea on exertion, Denies orthopnea, Denies paroxysmal nocturnal dyspnea and Denies slow heart rate Resp Denies cough, Denies dyspnea and Denies dyspnea on exertion GI Denies abdominal pain, Denies change in bowel habits, Denies excessive flatus, Denies nausea and Denies vomiting Denies urinary incontinence, Denies urinary hesitancy and Denies urinary urgency Musc Denies atrophy, Denies deformity and Denies limited range of motion Skin/Breast Denies bleeding lesions, Denies changing lesions and Denies rash Physical exam (Primary Care) Vital Signs: Last Vital Signs BP 142/90 H 11/27/24 16:02 BMI result Body Mass Index 37.3 BMI Assessment/Plan discussion: High BMI High, discussed plan: lifestyle, weight reduction, dietary and physical activity Tobacco/Smoking Status: Tobacco use Status Tobacco use date assessed 07/25/24 11/27/24 16:06 Patient Tobacco Use Status Current everyday Tobacco 11/27/24 16:06 Tobacco use type Cigarette 11/27/24 16:06 e-Cigarette/Vaping Use Never Used 11/27/24 16:06 Thrive Assessment: Date of Thrive Assessment Date Thrive assessed 07/25/24 11/27/24 16:06 Resp Effort & Inspection: normal respiratory effort Auscultation: clear to auscultation bilaterally Cardio Jugular venous distension: no JVD Rate: regular rate Rhythm: regular rhythm Heart sounds: S1 normal heart sound present and S2 normal heart sound present Extrem General: Yes full ROM Coding Level of Care Code Est Pt Level 4 (51347) Complex EM visit Add On G2211 Diagnoses Mild recurrent major depression F33.0 SAM (generalized anxiety disorder) F41.1 Class 2 obesity with body mass index (BMI) of 37.0 to 37.9 in adult E66.812; Z68.37 Abnormal menses N92.6 Right sided sciatica M54.31 Essential hypertension I10 Time Spent (min) 25 Assessment & Plan Assessment & Plan (1) Mild recurrent major depression: Code(s): F33.0 - Major depressive disorder, recurrent, mild Category: Medical (2) SAM (generalized anxiety disorder): Code(s): F41.1 - Generalized anxiety disorder Category: Medical (3) Class 2 obesity with body mass index (BMI) of 37.0 to 37.9 in adult: Code(s): E66.812 - Obesity, class 2; Z68.37 - Body mass index [BMI] 37.0-37.9, adult Category: Medical (4) Abnormal menses: Code(s): N92.6 - Irregular menstruation, unspecified Category: Medical (5) Right sided sciatica: Code(s): M54.31 - Sciatica, right side Category: Medical (6) Essential hypertension: Code(s): I10 - Essential (primary) hypertension Category: Medical Plan The patient will continue with her current antihypertensive medication, amlodipine 10 mg, to manage her essential hypertension. For her depressive symptoms, she will maintain her current dose of paroxetine 40 mg and is encouraged to seek psychological counseling to address her mental health concerns. A referral to a automation operator will be made to evaluate her irregular menstrual cycles and provide appropriate management. The patient will be referred to a weight management program to address her concerns about weight gain. For her sciatica, alternative treatment options will be explored, avoiding spinal injections, and considering other therapeutic interventions. Patient was informed and verbally consented to the use of an ambient scribe for clinic note documentation during this visit. Orders: Orders Vitamin D 25-OH Total Today E55.9 - Vitamin D deficiency, unspecified Complete Blood Count Auto Diff Today D64.9 - Anemia, unspecified IRON PROFILE Today D64.9 - Anemia, unspecified Lipid Panel Today E78.5 - Hyperlipidemia, unspecified Comprehensive [place]. Panel Fast Today I10 - Essential (primary) hypertension Vitamin B12 and Folate Today E53.8 - Deficiency of other specified B group vitamins Referrals Medical Weight Management Referral E66.812 - Obesity, class 2, Z68.37 - Body mass index [BMI] 37.0-37.9, adult Pain Management Referral M54.31 - Sciatica, right side Counseling Referral F33.0 - Major depressive disorder, recurrent, mild, F41.1 - Generalized anxiety disorder LEAD JAVA DEVELOPER ARCHITECT Referral N92.6 - Irregular menstruation, unspecified Medications: Changed From cholecalciferol (vitamin D3) (Dialyvite Vitamin D) 125 mcg PO DAILY To cholecalciferol (vitamin D3) (Dialyvite Vitamin D) 125 mcg PO DAILY 30 caps 1RF 30 days Refilled pantoprazole 40 mg PO DAILY 90 tabs 1RF 90 days
[2024-11-27 16:02] VITALS: BP 142/90; BMI 37.3
== END 2024-11-27 16:27 | disposition home or self-care (01) ==
LOC: HO.HMCH 15:38
PROVIDERS: PCP Internal Medicine; Visit Provider Internal Medicine
DX: F33.0 Major depressive disorder, recurrent, mild (principal); F41.1 Generalized anxiety disorder; E66.812 Obesity, class 2; Z68.37 Body mass index [BMI] 37.0-37.9, adult; N92.6 Irregular menstruation, unspecified; M54.31 Sciatica, right side; I10 Essential (primary) hypertension

== ENCOUNTER 2025-01-04 10:41 | Outpatient (REF) | payer OTHER, SELFPAY ==
[2025-01-04 12:11] LABS: Hematocrit 30.8 % (37.0-47.0); Hemoglobin 8.4 g/dl (12.0-16.0); Mean Corpuscular HGB Conc 27.3 g/dl (31.0-35.0); Mean Corpuscular Hemoglobin 17.2 pg (27.0-33.0); NRBC Abs Auto 0.000 X10*3/uL (0.0-0.012); NRBC Pct Auto 0.0 /100WBC (0.0-0.2); Platelet Count 524 X10*3/uL (160-400); Red Blood Count 4.87 X10*6/uL (4.20-5.50); White Blood Count 7.1 X10*3/uL (4.8-10.8)
[2025-01-04 12:12] LABS: Mean Corpuscular Volume 63.2 fL (80.0-98.0)
[2025-01-04 12:56] LABS: Thyroid Stimulating Hormone 0.80 uIU/mL (0.32-4.0)
== END 2025-01-04 10:42 | disposition home or self-care (01) ==
LOC: HO.LAB 10:41
PROVIDERS: PCP Internal Medicine; Visit Provider Advanced Practice Midwife
DX: N93.9 Abnormal uterine and vaginal bleeding, unspecified (principal); N92.1 Excessive and frequent menstruation with irregular cycle; Z32.02 Encounter for pregnancy test, result negative
CPT/HCPCS: 36415; 84443; 85027

== ENCOUNTER 2025-01-04 10:41 | Outpatient (AMB) | payer OTHER, SELFPAY ==
--- NOTE | 2025-01-04 10:49 | A.OFFVIS_ITS ---
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 She has history of heavy, prolonged bleeding lasting and irregular spacing closely 2-3 wks. Last Pap 9 years ago. Having hot flashes. She reports some pelvic pain, more on the left ovary since her last SAB 6yrs ago, not increasing. No urinary symptoms. UPT is negative. [facility] Medical History Abnormal uterine bleeding (AUB) SAM (generalized anxiety disorder) Mild recurrent major depression Hand numbness Right sided sciatica Class 2 obesity with body mass index (BMI) of 37.0 to 37.9 in adult Right foot pain Essential hypertension Migraine Surgical History History of eye surgery History of hernia repair History of tonsillectomy History of appendectomy Family History Father Diabetes Hypertension Mother Diabetes Hypertension Asthma Paternal Grandmother Cancer Paternal Grandmother Uterine cancer Maternal Aunt Uterine cancer Maternal Uncle Esophageal cancer Social History Housing: Apartment Alcohol intake: current Alcohol intake frequency: holidays/special occasions only Alcohol type: beer Patient Tobacco Use Status: Current everyday Tobacco user Tobacco use type: Cigarette Cigarettes Per Day: 3 e-Cigarette/Vaping Use: Never Used Second Hand Smoke Exposure: No service: No Current occupational status: employed Current occupation: [employer] Current occupational exposures/hazards: No Cognitive needs: No Hearing needs: No Vision needs: Yes Female Reproductive History Menstrual Age of Menarche: 8 Duration of menses: 3-5 days Date of last menstrual period: 12/28/24 control method: none Total pregnancies: 4 Full term: 1 Ab spontaneous: 3 History of abnormal pap smear: Yes Review of Systems Const All systems reviewed & are unremarkable except as noted in HPI and below Physical Exam Vital Signs: BMI result Body Mass Index 37.1 Const General: cooperative, healthy appearing and no acute distress Orientation/consciousness: patient oriented x3 GI Inspection: Yes normal to inspection and Yes scar Palpation (GI): Soft to palpation and Other GI palpation findings present (Nontender) Rectal Exam - Female: visual inspection normal General: Yes bladder normal to palpation External Female Exam: normal appearance of the urethra Speculum Exam - Vagina: normal appearance of the vagina, normal palpation and normal vaginal discharge Speculum Exam - Cervix: normal appearance of the cervix and normal palpation Bimanual exam- vagina & uterus: normal bimanual exam, normal palpation, uterine size normal, bladder normal to palpation, normal palpation, uterine shape normal and non-tender Bimanual Exam- Adnexa, other: normal adnexae Neuro General: patient oriented x3 Assessment & Plan Assessment & Plan (1) Abnormal uterine bleeding (AUB): Code(s): N93.9 - Abnormal uterine and vaginal bleeding, unspecified Category: Medical Plan Discussed the workup for AUB to include pelvic ultrasound, Pap smear, GC chlamydia, lab work, UPT negative. Counseled regarding endometrial biopsy and pre procedure planning to take 3 ibuprofen with food 1 hour before the procedure appointment time. Endometrial biopsy procedure reviewed. The patient expressed understanding and agreement with the plan of care. All of her questions and concerns were addressed to the best of my ability. This note is constructed using voice recognition software. While every effort has been made to ensure accuracy, batch or continuous still operator errors may have been included. Orders: Orders US pelvic and transvaginal Today N93.9 - Abnormal uterine and vaginal bleeding, unspecified Complete Blood Count no Diff Today N93.9 - Abnormal uterine and vaginal bleeding, unspecified Thyroid Stimulating Hormone Today N92.1 - Excessive and frequent menstruation with irregular cycle, N93.9 - Abnormal uterine and vaginal bleeding, unspecified Coding Level of Care Code New Pt Level 3 (01608) Diagnoses Abnormal uterine bleeding (AUB) N93.9
[2025-01-04 11:06] VITALS: BP 140/80; BMI 37.1
== END 2025-01-04 11:56 | disposition home or self-care (01) ==
PROVIDERS: PCP Internal Medicine; Visit Provider Advanced Practice Midwife
DX: N93.9 Abnormal uterine and vaginal bleeding, unspecified (principal)
CPT/HCPCS: 99203

== ENCOUNTER 2025-01-04 12:57 | Outpatient (REF) | payer OTHER, SELFPAY ==
[2025-01-04 15:33] LABS: Bacterial Vaginosis PCR NEGATIVE (Negative); Candida Group PCR NOT DETECTED (Not Detect); Candida glab krusei PCR NOT DETECTED (Not Detect); Trichomonas vaginalis PCR NOT DETECTED (Not Detect)
[2025-01-04 16:04] LABS: CT PCR NOT DETECTED (Not Detect.); NG PCR NOT DETECTED (Not Detect.)
== END 2025-01-04 12:58 | disposition home or self-care (01) ==
LOC: HO.LNP 12:57
PROVIDERS: Visit Provider Advanced Practice Midwife
DX: Z01.419 Encounter for gynecological examination (general) (routine) without abnormal findings (principal); Z11.3 Encounter for screening for infections with a predominantly sexual mode of transmission; Z11.8 Encounter for screening for other infectious and parasitic diseases; Z20.2 Contact with and (suspected) exposure to infections with a predominantly sexual mode of transmission
CPT/HCPCS: 81515; 87491; 87591; 87626; 88175

== ENCOUNTER 2025-01-15 11:29 | Outpatient (REF) | payer OTHER, SELFPAY ==
--- NOTE | ~2025-01-15 | US_ITS ---
CLINICAL HISTORY: N93.9 - Abnormal uterine and vaginal bleeding, unspecified Transabdominal and transvaginal pelvic ultrasound Comparison: None Findings: Uterus 5.5 x 6.0 x 6.3 cm. Endometrium 7 mm. No significant free fluid in cul-de-sac. Three small uterine fibroids are identified. Largest measures 2.4 x 2.9 cm. Small nabothian cysts. Right ovary 2.8 x 1.7 x 2.2 cm. Left ovary 2.3 x 1.3 x 1.7 cm. No significant focal abnormality. Impression: Uterine fibroids, otherwise unremarkable This document has been electronically signed by: Brennan Young MD on 01/15/2025 19:08:57
== END 2025-01-15 11:30 | disposition home or self-care (01) ==
LOC: HO.US 11:29
PROVIDERS: PCP Internal Medicine; Visit Provider Advanced Practice Midwife
DX: N93.9 Abnormal uterine and vaginal bleeding, unspecified (principal)
CPT/HCPCS: 76830; 76856

== ENCOUNTER → 2025-01-15 11:34 | Outpatient (BNV) | payer OTHER, SELFPAY | PROVIDERS: PCP Internal Medicine; Visit Provider Radiology Diagnostic Radiology | DX: N93.9 Abnormal uterine and vaginal bleeding, unspecified (principal); D25.9 Leiomyoma of uterus, unspecified | CPT/HCPCS: 76830; 76856 ==

== ENCOUNTER 2025-01-31 14:48 | Outpatient (AMB) | payer OTHER, SELFPAY ==
--- NOTE | 2025-01-31 14:50 | MHC.OFFVIS ---
Intake Visit Reasons: EMB/ US results Thermometer Maker: Thermometer Maker Present (Domi) Accompanied by: Self / Same As Patient Allergies bupropion (From Wellbutrin) Allergy (Intermediate, Verified 01/31/25 14:53) changes in mood buspirone Allergy (Intermediate, Verified 01/31/25 14:53) changes in mood HPI Comments Details: Patient is here today for a follow up pelvic ultrasound and EMB procedure, due to a history of AUB. History of hypertension and current smoker. Bled from January 25-, 3/5d heavy. Hemoglobin 01/04/25-8.4. [facility] Medical History (Updated 01/31/25 @ 17:10 by Neena Momin CNM) IUD (intrauterine device) in place Abnormal uterine bleeding (AUB) SAM (generalized anxiety disorder) Mild recurrent major depression Hand numbness Right sided sciatica Class 2 obesity with body mass index (BMI) of 37.0 to 37.9 in adult Right foot pain Essential hypertension Migraine Surgical History History of eye surgery History of hernia repair History of tonsillectomy History of appendectomy Family History Father Diabetes Hypertension Mother Diabetes Hypertension Asthma Paternal Grandmother Cancer Paternal Grandmother Uterine cancer Maternal Aunt Uterine cancer Maternal Uncle Esophageal cancer Social History Housing: Apartment Alcohol intake: current Alcohol intake frequency: holidays/special occasions only Alcohol type: beer Patient Tobacco Use Status: Current everyday Tobacco user Tobacco use type: Cigarette Cigarettes Per Day: 3 e-Cigarette/Vaping Use: Never Used Second Hand Smoke Exposure: No service: No Current occupational status: employed Current occupation: [employer] Current occupational exposures/hazards: No Cognitive needs: No Hearing needs: No Vision needs: Yes Female Reproductive History Menstrual Age of Menarche: 8 Review of Systems Const All systems reviewed & are unremarkable except as noted in HPI and below Physical Exam Const General: cooperative, healthy appearing and no acute distress Orientation/consciousness: patient oriented x3 GI Inspection: Yes normal to inspection Palpation (GI): Soft to palpation and Other GI palpation findings present (Nontender) Rectal Exam - Female: visual inspection normal General: Yes bladder normal to palpation External Female Exam: normal appearance of the urethra Speculum Exam - Vagina: normal appearance of the vagina, normal palpation and normal vaginal discharge Speculum Exam - Cervix: normal appearance of the cervix and normal palpation Bimanual exam- vagina & uterus: normal bimanual exam, normal palpation, uterine size normal, bladder normal to palpation, normal palpation, uterine shape normal and non-tender Bimanual Exam- Adnexa, other: normal adnexae Neuro General: patient oriented x3 Office Procedures IUD Insert/Removal Details [id number]-WHV Insertion Procedure code (CPT) selection complete Endometrial Biopsy Details: The patient is here today for an endometrial biopsy due to AUB to rule out any pathology including atypical, hyperplasia or cancer cells of the uterus. She was counseled regarding anticipatory guidance for the procedure including the risks for pain, infection, bleeding, perforation, potential injury to the tissues may include the cervix, uterus, tubes, bladder and bowels. These injuries may include further treatment and evaluation including surgery, blood transfusions, antibiotics, hospitalizations and anesthesia. Permanent injury and scarring can occur. She was consented for the procedure, and the consent forms were signed. She is agreeable to have the procedure today. All questions were answered. Endometrial Biopsy Procedure: The patient was placed in the dorsal lithotomy position and a sterile speculum inserted. Using aseptic technique for the procedure. The cervix was cleansed with Hibiclens x 3 swabs. A single toothed tenaculum was placed on the cervix for stabilization and the uterus was sounded to 9 cm with a 4mm pipelle, and tissue sample obtained. Minimal bleeding was observed. The tissue sample was placed in formalin in a patient labeled container by staff assisting and sent to the pathology department for processing and interpretation. The patient tolerate the procedure well and was in good condition when leaving the department. Endometrial Biopsy Post Procedure Care: Nothing in the vagina including: tampons, douching or intimacy until all the bleeding has subsided. There may be some post procedure bleeding for several days, this bleeding is usually light and may turn to a light brown or pink color. Mild cramps may occurs. Nothing in the vaginal including: tampons, douching, or intimacy until all the bleeding has subsided. You may take an over the counter mild analgesic such as Tylenol or Advil (if no allergies) per the manufactures recommendation on dosing, frequency, and follow the directions completely. Call the office if any: fever (over 100.4), flu like symptoms, abdominal pain (worse than cramping), foul smelling, infected appearing vaginal discharge, or heavy bleeding. If indicated: Use condoms to prevent and STI's, and only after the bleeding has stopped completely. Return to the office in 2 weeks for results and plan of care. This note is constructed using voice recognition software. While every effort has been made to ensure accuracy, junior account executive errors may have been included. 36946-Fnefeiahtct Biopsy IUD Insert/Removal Details Details: The patient is here today for a Mirena IUD insertion. She was counseled on the side effects including: menstrual cycle changes, pain, infection, bleeding, or expulsion. Risks of injury to the vagina, cervix, uterus, tubes, ovaries, bowel, bladder, and any adjacent tissue, resulting in nerve damage, scarring, and pain. Risks complications for the procedure that may require other test including ultrasounds, Xray, CT or MRI scan, surgery, anesthesia, blood transfusion. A urine test was completed and was negative. She was consented for the IUD insertion and has signed the consent form. All questions were answered. IUD Insertion: The patient was placed in the dorsal lithotomy position and a sterile speculum was inserted. The procedure was completed under aseptic technique. The cervix and vagina were cleansed with a Hibiclens solution x 3 swabs. A single toothed tenaculum was applied to the cervix for stabilization, and the uterus was sounded to 9 cm. The device was inserted and released with a gentle motion. Bleeding from the tenaculum sites and the procedure were minimal. The strings were trimmed to 3cm. All of the equipment was removed and the bimanual was normal, no tip was palpable at the cervical os. The patient tolerated the procedure well and left the office in good condition. Post IUD Insertion Care: There may be some post insertion bleeding for several days that is usually light and can turn to a light brown or pink in color. Mild cramping may occur. Nothing in the vagina including: tampons, douching or intimacy for several days. You may take an over the counter mild analgesia like Tylenol or Advil (if no allergies), per the manufacturers recommendations on dosing and frequency. Follow the directions completely. Call the office if any: fever (over 100.4), flu like symptoms, abdominal pain, worsening cramping not resolved with over the counter medications, foul smelling vaginal odor, signs of infected appearing discharge, or heavy bleeding. Use a condom for a back up method if indicated for 7 days. Always use a condom for STI prevention; IUD's are not protective against STD's. Return to the office in 4-6 weeks for IUD recheck. This note is constructed using voice recognition software. While every effort has been made to ensure accuracy, junior account executive errors may have been included. 69806-DOL Insertion Procedure code (CPT) selection complete Office Meds Mirena 21 mcg/24 hr (up to 8 years) 52 mg intrauterine device Performing Provider: Neena Momin CNM Performing Location: [facility] [place] [facility] Administered by: LIN Calderon on 01/31/25 16:12 Dose Route Admin Location Dispensed Lot Number Expiration Date [facility] Electrical Controls Technician 1 device intrauterine 1 device [id number] 03/23/27 28016-362-31 [employer] Total Dispensed Waste 1 device 0 % Results AMB Test Urine AMB Test Urine Negative Last Edit by LIN Calderon on 01/31/25 15:27 Results Reviewed Results Reviewed: Laboratory Last Values Tst Clinic Negative 01/31/25 15:25 Assessment & Plan Assessment & Plan (1) Anemia: Code(s): D64.9 - Anemia, unspecified Qualifiers: Anemia type: unspecified type Qualified Code(s): D64.9 - Anemia, unspecified Plan: CBC ordered await results for final plan of care. The patient expressed understanding and agreement with the plan of care. All of her questions and concerns were addressed to the best of my ability. (2) Abnormal uterine bleeding (AUB): Code(s): N93.9 - Abnormal uterine and vaginal bleeding, unspecified Category: Medical Plan: EMB procedure completed, sees procedure notes. (3) Encounter for IUD insertion: Code(s): Z30.430 - Encounter for insertion of intrauterine contraceptive device Plan Mirena IUD insertion completed. See procedure notes. This note is constructed using voice recognition software. While every effort has been made to ensure accuracy, junior account executive errors may have been included. Orders: Orders AMB HCG Urine Test Today Z32.02 - Encounter for test, result negative AMB IUD Insertion/Removal - Practice Supplied Today Z30.430 - Encounter for insertion of intrauterine contraceptive device Complete Blood Count no Diff Today D64.9 - Anemia, unspecified Surgical Today N93.9 - Abnormal uterine and vaginal bleeding, unspecified Coding Level of Care Code Procedure Only Diagnoses Anemia, unspecified type D64.9 Anemia type: unspecified type Abnormal uterine bleeding (AUB) N93.9 Encounter for IUD insertion Z30.430 CPT Codes Details - CPT: 40844-WTM Insertion ([id number]) Endometrial Biopsy - CPT: 29031-Ggwpvicugsk Biopsy ([id number]) Details - CPT: 27125-HQM Insertion ([id number])
== END 2025-01-31 16:23 | disposition home or self-care (01) ==
LOC: HO.HWS 14:49
PROVIDERS: PCP Internal Medicine; Visit Provider Advanced Practice Midwife
DX: D64.9 Anemia, unspecified (principal); N93.9 Abnormal uterine and vaginal bleeding, unspecified; Z30.430 Encounter for insertion of intrauterine contraceptive device; Z32.02 Encounter for pregnancy test, result negative
CPT/HCPCS: 58100; 58300

== ENCOUNTER 2025-01-31 14:48 | Outpatient (REF) | payer OTHER, SELFPAY ==
[2025-01-31 17:15] LABS: Hematocrit 31.2 % (37.0-47.0); Hemoglobin 8.9 g/dl (12.0-16.0); Mean Corpuscular HGB Conc 28.5 g/dl (31.0-35.0); Mean Corpuscular Hemoglobin 17.9 pg (27.0-33.0); NRBC Abs Auto 0.000 X10*3/uL (0.0-0.012); NRBC Pct Auto 0.0 /100WBC (0.0-0.2); Platelet Count 579 X10*3/uL (160-400); Red Blood Count 4.96 X10*6/uL (4.20-5.50); White Blood Count 7.8 X10*3/uL (4.8-10.8)
[2025-01-31 17:20] LABS: Mean Corpuscular Volume 62.9 fL (80.0-98.0)
== END 2025-01-31 14:49 | disposition home or self-care (01) ==
LOC: HO.LAB 14:48
PROVIDERS: PCP Internal Medicine; Visit Provider Advanced Practice Midwife
DX: D64.9 Anemia, unspecified (principal); N93.9 Abnormal uterine and vaginal bleeding, unspecified; Z30.430 Encounter for insertion of intrauterine contraceptive device; Z32.02 Encounter for pregnancy test, result negative
CPT/HCPCS: 36415; 58100; 58300; 81025; 85027; J7298

== ENCOUNTER 2025-01-31 16:19 | Outpatient (REF) | payer OTHER, SELFPAY | END 2025-01-31 16:20 | disposition home or self-care (01) | LOC: HO.LNP 16:19 | PROVIDERS: Visit Provider Advanced Practice Midwife | DX: N93.9 Abnormal uterine and vaginal bleeding, unspecified (principal) | CPT/HCPCS: 88305 ==

== ENCOUNTER 2025-02-02 09:48 | Outpatient (REF) | payer OTHER, SELFPAY ==
[2025-02-02 10:00] LABS: MANUAL DIFF FLAG NO
[2025-02-02 10:58] LABS: Hematocrit 30.4 % (37.0-47.0); Hemoglobin 8.5 g/dl (12.0-16.0); Imm Gran Abs Auto 0.01 X10*3/uL (0.00-0.03); Imm Gran Pct Auto 0.2 % (0.0-0.4); Lymphocytes Absolute Auto 2.1 X10*3/uL (1.2-4.9); Mean Corpuscular HGB Conc 28.0 g/dl (31.0-35.0); Mean Corpuscular Hemoglobin 17.7 pg (27.0-33.0); NRBC Abs Auto 0.000 X10*3/uL (0.0-0.012); NRBC Pct Auto 0.0 /100WBC (0.0-0.2); Platelet Count 563 X10*3/uL (160-400); Red Blood Count 4.80 X10*6/uL (4.20-5.50); White Blood Count 6.1 X10*3/uL (4.8-10.8)
[2025-02-02 10:59] LABS: Mean Corpuscular Volume 63.3 fL (80.0-98.0)
[2025-02-02 12:04] LABS: Alanine Aminotransferase 16 U/L (0-31); Albumin Level 4.3 g/dL (3.5-5.0); Alkaline Phosphatase 73 U/L (39-117); Anion Gap 14 (12-20); Aspartate Amino Transferase 21 U/L (5-31); Blood Urea Nitrogen 11 mg/dL (9-16); Calcium 8.8 mg/dL (8.4-10.2); Carbon Dioxide 24 mmol/L (22-29); Chloride 107 mmol/L (96-108); Cholesterol 194 mg/dL (<200); Estimated Glomerular Filt Rate > 60; HDL Cholesterol 62 mg/dL (>40); Iron 17 mcg/dL (30-160); Percent Iron Saturation 5 % (15-50); Potassium 3.5 mmol/L (3.3-5.1); Sodium 141 mmol/L (135-145); Total Iron Binding Capacity 314 mcg/dL (228-428); Total Protein 7.1 g/dL (6.5-8.0); Triglycerides 93 mg/dL (<150); Unsaturated Iron Binding 297 ug/dL
[2025-02-02 12:24] LABS: Folate 11.2 ng/mL (> or = 4.0); Vitamin B12 741 pg/mL (200-900)
== END 2025-02-02 09:49 | disposition home or self-care (01) ==
LOC: HO.LAB 09:48
PROVIDERS: PCP Internal Medicine; Visit Provider Internal Medicine
DX: I10 Essential (primary) hypertension (principal); E78.5 Hyperlipidemia, unspecified; E55.9 Vitamin D deficiency, unspecified; E53.8 Deficiency of other specified B group vitamins; D64.9 Anemia, unspecified
CPT/HCPCS: 36415; 80053; 80061; 82306; 82607; 82746; 83540; 85025

== ENCOUNTER 2025-02-06 16:50 | Outpatient (AMB) | payer OTHER, SELFPAY ==
--- NOTE | 2025-02-06 16:54 | A.OFFPC_ITS ---
Vital Signs 02/06/25 16:55 Height 5 ft 6 in Weight 231 lb 2 oz BMI 37.3 BP 130/76 Blood Pressure Location Lt brachial Position Sitting Respiration 18 Pulse 110 H Pulse Source Pulse Oximeter Temp 97.3 F Temp Source Temporal Artery Scan Pulse Oximetry (%) 98 Oxygen Delivery Method Room Air Intake Visit Reasons: annual exam Venture Capitalist Required: No Accompanied by: Self / Same As Patient Allergies bupropion (From Wellbutrin) Allergy (Intermediate, Verified 02/06/25 17:11) changes in mood buspirone Allergy (Intermediate, Verified 02/06/25 17:11) changes in mood shellfish derived (shellfish) Adverse Reaction (Severe, Verified 02/06/25 17:11) Anaphylaxis Medication List - Last Reconciled 02/06/25 by Dori Lee MD albuterol sulfate 90 mcg/actuation 2 puffs inhalation Q6H PRN amlodipine 10 mg PO DAILY 90 days blood pressure test kit-large (Quick Response BP Monitor-Large Cuff kit) As directed, check BP twice a day, and log data cholecalciferol (vitamin D3) (Dialyvite Vitamin D) 125 mcg PO DAILY 30 days ferrous sulfate 325 mg PO BID 30 days fexofenadine 180 mg PO DAILY PRN 30 days magnesium oxide 400 mg PO BEDTIME 90 days pantoprazole 40 mg PO DAILY 90 days paroxetine HCl 40 mg PO DAILY 90 days Tobacco use date assessed: 02/06/25 Dental Screening Dental Screen Date: 02/06/25 Did you have a dental visit in the last 12 months?: Yes Did you have a dental problem in the last 6 months where you did not have access to dental care?: No Was dental information given to patient?: Patient has dentist HPI HPI Comments History of Present Illness Details The patient is a 39-year-old female presenting for a physical exam. She has a history of depression, which is somewhat stable with paroxetine, but she is unable to work due to the condition being aggravated by work stress. She plans to start counseling soon to help manage her depression. The patient is obese with a BMI of 37.3 and has been advised on diet and exercise, although she was initially opposed to these lifestyle changes. She has hypertension, which is well controlled with amlodipine. The patient also reports anemia, which is being monitored, and she experiences muscle spasms for which she is considering a muscle relaxer. In terms of preventative care, she is due for a mammogram and has had a Pap smear this year with a negative biopsy result. [facility] Medical History (Updated 02/06/25 @ 17:23 by Dori Lee MD) IUD (intrauterine device) in place Abnormal uterine bleeding (AUB) SAM (generalized anxiety disorder) Mild recurrent major depression Hand numbness Right sided sciatica Class 2 obesity with body mass index (BMI) of 37.0 to 37.9 in adult Right foot pain Essential hypertension Migraine Surgical History History of eye surgery History of hernia repair History of tonsillectomy History of appendectomy Family History Father Diabetes Hypertension Mother Diabetes Hypertension Asthma Paternal Grandmother Cancer Paternal Grandmother Uterine cancer Maternal Aunt Uterine cancer Maternal Uncle Esophageal cancer Social History Housing: Apartment Alcohol intake: current Alcohol intake frequency: holidays/special occasions only Alcohol type: beer Patient Tobacco Use Status: Current everyday Tobacco user Tobacco use type: Cigarette Cigarettes Per Day: 3 e-Cigarette/Vaping Use: Never Used Second Hand Smoke Exposure: No service: No Current occupational status: employed Current occupation: [employer] Current occupational exposures/hazards: No Cognitive needs: No Hearing needs: No Vision needs: Yes Female Reproductive History Menstrual Age of Menarche: 8 Questionnaire PHQ-9 Over the last 2 weeks, how often have you been bothered by any of the following problems? 1. Little interest or pleasure in doing things: nearly every day 2. Feeling down, depressed, or hopeless: more than half the days 3. Trouble falling or staying asleep, or sleeping too much: nearly every day 4. Feeling tired or having little energy: nearly every day 5. Poor appetite or overeating: nearly every day 6. Feeling bad about yourself - or that you are a failure or have let yourself or your family down: not at all 7. Trouble concentrating on things, such as reading the newspaper or watching television: nearly every day 8. Moving or speaking so slowly that other people could have noticed. Or the opposite - being so fidgety or restless that you have been moving around a lot more than usual: not at all 9. Thoughts that you would be better off or of hurting yourself in some way: not at all Total score: 17 Depression Screening Interpretation: Positive Depression Screening Follow-up: Existing condition, In treatment, Community Mental Health Worker F/U and Follow- up Visit Requested Depression Screening Done: Yes 28243 - PHQ-9 Billing: Yes Source: Developed by Drs. Jose Glez, Mary Garcia, Evan Hernandez and colleagues, with an educational radha from [employer]. Thrive Questionnaire Date Thrive assessed: 02/05/25 I am a: Patient What is your living situation today?: I have a steady place to live Within the past 12 months, did the food you bought not last and you didn't have the money to get more?: Never true Within the past 12 months, did you worry whether your food would run out before you got money to buy more?: Never true Do you have trouble paying for medicines?: No Do you have trouble getting transportation to medical appointments?: No Do you have trouble paying your heating and electricity bill?: I choose not to answer this question Do you have trouble taking care of your child, family member or friend?: No Do you have trouble with day-to-day activities such as bathing, preparing meals, shopping, managing finances, etc.?: No Are you currently unemployed and looking for a job?: No Are you interested in more education?: I choose not to answer this question Please select the resources that you would like help with: None Currently or been in a relationship where the following occur: No concerns reported THRIVE Score: 0 AUDIT C Alcohol Use Questionnaire (AUDIT-C) 1. How often do you have a drink containing alcohol?: 2-4 times a month 2. How many drinks containing alcohol do you have on a typical day when you are drinking?: 3 or 4 3. How often do you have six or more drinks on one occasion?: Never Total Score: 3 Score Reviewed/Action Taken: No SAM-7 AMB Questionnaire SAM-7 Date SAM - 7 assessed: 07/25/24 Feeling nervous, anxious, or on edge: 1 = Several days Not being able to stop or control worryin = Several days Worrying too much about different things: 1 = Several days Trouble relaxin = Several days Being so restless that it is hard to sit still: 1 = Several days Becoming easily annoyed or irritable: 1 = Several days Feeling afraid as if something awful might happen: 1 = Several days Total SAM-7 score (0-4 normal; 5-9 mild; 10-14 moderate; 15-21 severe): 7 Source: Developed by Drs. Jose Glez, Mary Garcia, Evan Hernandez and colleagues, with an educational radha from [employer]. SAM-7 Assessment Billing SAM-7 Assessment Tool: SAM-7 Assessment 82413 Review of Systems Const All systems reviewed & are unremarkable except as noted in HPI and below Card Denies chest pain at rest, Denies chest pain with activity, Denies edema, Denies irregular heart rhythm, Denies claudication, Denies dyspnea, Denies dyspnea on exertion, Denies orthopnea, Denies paroxysmal nocturnal dyspnea and Denies slow heart rate Resp Denies cough, Denies dyspnea and Denies dyspnea on exertion GI Denies abdominal pain, Denies change in bowel habits, Denies excessive flatus, Denies nausea and Denies vomiting Denies urinary incontinence, Denies urinary hesitancy and Denies urinary urgency Musc Denies atrophy, Denies deformity and Denies limited range of motion Skin/Breast Denies bleeding lesions, Denies changing lesions and Denies rash Physical exam (Primary Care) Vital Signs: Last Vital Signs Temp 97.3 F 02/06/25 16:55 Pulse 110 H 02/06/25 16:55 Resp 18 02/06/25 16:55 BP 130/76 02/06/25 16:55 Pulse Ox 98 02/06/25 16:55 Oxygen Delivery Method Room Air 02/06/25 16:55 BMI result Body Mass Index 37.3 BMI Assessment/Plan discussion: High BMI High, discussed plan: lifestyle, weight reduction, dietary and physical activity Tobacco/Smoking Status: Tobacco use Status Tobacco use date assessed 02/06/25 02/06/25 17:03 Patient Tobacco Use Status Current everyday Tobacco 02/06/25 16:58 Tobacco use type Cigarette 02/06/25 16:58 e-Cigarette/Vaping Use Never Used 02/06/25 16:58 Are you ready to quit: No Tobacco cessation counseling provided: Yes Items discussed: Nicotine replacement and QuitWorks Relapse Prevention: discussed the importance of a supportive environment, discussed negative mood or depression after quitting and weight gain after smoking is common Number of minutes spent counselin CPT code: Less than 3 minutes PHQ-9: PHQ-9 Score PHQ-9: Total score 17 02/06/25 17:15 Depression Screening Interpretation: Positive Depression Screening Follow-up: Existing condition, In treatment, Community Mental Health Worker F/U and Follow- up Visit Requested Thrive Assessment: Date of Thrive Assessment Date Thrive assessed 02/05/25 02/06/25 16:58 Currently or been in a relationship where the following occur: No concerns reported HENMT Head: Yes normal to inspection, Yes normocephalic and Yes atraumatic Ears: external ears normal Eyes General: appearance normal, both eyes and all related structures Eyelids: Yes eyelids normal Conjunctivae: conjunctivae normal Neck Neck: Yes normal visual inspection and Yes supple Resp Effort & Inspection: normal respiratory effort Auscultation: clear to auscultation bilaterally Cardio Jugular venous distension: no JVD Rate: regular rate Rhythm: regular rhythm Heart sounds: S1 normal heart sound present and S2 normal heart sound present GI Inspection: Yes normal to inspection Palpation (GI): Soft to palpation and nontender Auscultation: normal bowel sounds Skin General skin exam: no rashes or lesions noted Neuro General: no focal motor deficits Extrem General: Yes full ROM Psych Appearance: grossly normal Coding Level of Care Code Est Pt Level 3 (21912) Est Pt Prev Care 40-64y(33578) Diagnoses Physical exam Z00.00 Mild recurrent major depression F33.0 Muscle spasm M62.838 Additional Codes SAM-7 Assessment Billing - SAM-7 Assessment Tool: SAM-7 Assessment 41272 ([id number]) PHQ-9 - 92859 - PHQ-9 Billing: Yes ([id number]) Time Spent (min) 33 Assessment & Plan Assessment & Plan (1) Physical exam: Code(s): Z00.00 - Encounter for general adult medical examination without abnormal findings Category: Medical (2) Mild recurrent major depression: Code(s): F33.0 - Major depressive disorder, recurrent, mild Category: Medical (3) Muscle spasm: Code(s): M62.838 - Other muscle spasm Category: Medical Plan Plan Patient was informed and verbally consented to the use of an ambient scribe for clinic note documentation during this visit. 1. Depression The patient will start counseling soon to manage her depression, which is somewhat stable with paroxetine. 2. Obesity The patient has been advised on diet and exercise to manage obesity, although she was initially opposed to these changes. 3. Hypertension Hypertension is well controlled with amlodipine. 4. Anemia The patient is being monitored for anemia. 5. Preventative Care: Mammogram Due The patient is due for a mammogram as part of her preventative care. Orders: Orders MM tomosynthesis screening BI Today Z12.31 - Encounter for screening mammogram for malignant neoplasm of breast Medications: New cyclobenzaprine 5 mg PO BEDTIME PRN 10 tabs 0RF muscle spasm 10 days M62.838 - Other muscle spasm
[2025-02-06 16:55] VITALS: BP 130/76; PULSE 110; RESP 18; TEMP 36.3; O2SAT 98; BMI 37.3
== END 2025-02-06 17:24 | disposition home or self-care (01) ==
LOC: HO.HMCH 16:51
PROVIDERS: PCP Internal Medicine; Visit Provider Internal Medicine
DX: Z00.00 Encounter for general adult medical examination without abnormal findings (principal); F33.0 Major depressive disorder, recurrent, mild; M62.838 Other muscle spasm

== ENCOUNTER → 2025-02-06 16:50 | Outpatient (BNVA) | payer OTHER, SELFPAY | PROVIDERS: PCP Internal Medicine; Visit Provider Internal Medicine | DX: Z00.00 Encounter for general adult medical examination without abnormal findings (principal); E66.9 Obesity, unspecified; I10 Essential (primary) hypertension; D64.9 Anemia, unspecified; F33.0 Major depressive disorder, recurrent, mild; M62.838 Other muscle spasm; Z68.37 Body mass index [BMI] 37.0-37.9, adult | CPT/HCPCS: 96127 ==

== ENCOUNTER 2025-02-14 14:17 | Outpatient (AMB) | payer OTHER, SELFPAY ==
--- NOTE | 2025-02-14 14:24 | MHC.OFFVIS ---
Intake Visit Reasons: emb results/iud check Intake Note: Patient has concerns of IUD and says she wants it out, always crampy, bloated, spotting. Has not gotten menstrual yet. Denied giving urine sample. Companion Caregiver: Companion Caregiver Present (BUCK Mcgowan) Accompanied by: Self / Same As Patient Allergies bupropion (From Wellbutrin) Allergy (Intermediate, Verified 02/06/25 17:11) changes in mood buspirone Allergy (Intermediate, Verified 02/06/25 17:11) changes in mood shellfish derived (shellfish) Adverse Reaction (Severe, Verified 02/06/25 17:11) Anaphylaxis Is last menstrual period known: Yes HPI Comments Details: Patient is here today for a follow up on endometrial biopsy results and Mirena IUD post insertion check up. She defers examination today prefers to reschedule for the IUD check exam. Since the IUD insertion she has been experiencing breast tenderness, bloating, cramps, spotting mostly brown and low back pain. [facility] Medical History IUD (intrauterine device) in place Abnormal uterine bleeding (AUB) SAM (generalized anxiety disorder) Mild recurrent major depression Hand numbness Right sided sciatica Class 2 obesity with body mass index (BMI) of 37.0 to 37.9 in adult Right foot pain Essential hypertension Migraine Surgical History History of eye surgery History of hernia repair History of tonsillectomy History of appendectomy Family History Father Diabetes Hypertension Mother Diabetes Hypertension Asthma Paternal Grandmother Cancer Paternal Grandmother Uterine cancer Maternal Aunt Uterine cancer Maternal Uncle Esophageal cancer Social History Housing: Apartment Alcohol intake: current Alcohol intake frequency: holidays/special occasions only Alcohol type: beer Patient Tobacco Use Status: Current everyday Tobacco user Tobacco use type: Cigarette Cigarettes Per Day: 3 e-Cigarette/Vaping Use: Never Used Second Hand Smoke Exposure: No service: No Current occupational status: employed Current occupation: [employer] Current occupational exposures/hazards: No Cognitive needs: No Hearing needs: No Vision needs: Yes Female Reproductive History Menstrual Age of Menarche: 8 Review of Systems Const All systems reviewed & are unremarkable except as noted in HPI and below Endo Reports no additional complaints Physical Exam Const General: cooperative, healthy appearing and no acute distress Psych Appearance: well kempt Attitude: cooperative Thought process: Normal thought process present Results AMB Test Urine AMB Test Urine Negative Last Edit by Roslyn Smart LPN on 02/14/25 14:52 AMB Urinalysis, Automated UA Leukoctes Sal/uL Last Edit by Roslyn Smart LPN on 02/14/25 14:52 UA Nitrite Last Edit by Roslyn Smart LPN on 02/14/25 14:52 UA Urobilinogen 3.5 mg/dL Last Edit by Roslyn Smart LPN on 02/14/25 14:52 UA Protein mg/dL Last Edit by Roslyn Smart LPN on 02/14/25 14:52 UA pH 6.0 Last Edit by Roslyn Smart LPN on 02/14/25 14:52 UA Blood Jason/uL Last Edit by Roslyn Smart LPN on 02/14/25 14:52 UA Specific Wann 1.020 Last Edit by Roslyn Smart LPN on 02/14/25 14:52 UA Ketone Last Edit by Roslyn Smart LPN on 02/14/25 14:52 UA Bilirubin mg/dL Last Edit by Roslyn Smart LPN on 02/14/25 14:52 UA Glucose mg/dL Last Edit by Roslyn Smart LPN on 02/14/25 14:52 Results Reviewed Results Reviewed: Laboratory Last Values Urine pH (Auto) 6.0 02/14/25 14:50 Specific Wann (Auto) 1.020 02/14/25 14:50 Urine Urobilinogen (Auto) 3.5 mg/dL 02/14/25 14:50 Tst Clinic Negative 02/14/25 14:50 Surgical Pathology [id number] Name: Khalida Wells Age/Sex: 39/F Attending: Neena Momin CNM : 1985 Submitted by: Neena Momin CNM Copies to: MR #: [id number] Status: DEP REF Collected: 01/31/25 Location: [facility] Received: 02/01/25 Diagnosis Endometrium, biopsy: Proliferative endometrium; no atypia or hyperplasia identified. Clinical History AUB Microscopic Description Microscopic sections reviewed. Material Received Endometrial biopsy Gross Description Received in formalin labeled ?EMB? is a 2.0 x 2.0 x 0.5 cm aggregate of multiple irregular and tubular cast fragments of congested and hemorrhagic garcia-brown tissue, submitted in toto in a cassette labeled A. CEDS NOTE: Unless otherwise stated, all tissue is formalin-fixed and paraffin-embedded. Some or all of the immunohistochemical tests reported herein may have been developed and their performance characteristics determined by [facility]. They have not been cleared or approved by the U.S. Food and Drug Administration (FDA). However, the FDA has determined that such clearance or approval is not necessary. This laboratory is certified under the Clinical Laboratory Improvement Amendments of 1988 (CLIA) as qualified to perform high complexity clinical laboratory testing. Electronically Signed By: Jacobo Abdi MD 02/02/25 [id number] Patient: Khalida Wells [facility]: 39[id number] MR#: [id number] Page 1 of 1 Assessment & Plan Assessment & Plan (1) Encounter to discuss test results: Code(s): Z71.2 - Person consulting for explanation of examination or test findings Plan: Discussed endometrial pathology: Diagnosis Endometrium, biopsy: Proliferative endometrium; no atypia or hyperplasia identified. (2) IUD surveillance: Code(s): Z30.431 - Encounter for routine checking of intrauterine contraceptive device Plan Reviewed purpose of the IUD- to treat her abnormal uterine bleeding, risks benefits including side effects of the progesterone hormone which can cause the symptoms she reports, many symptoms may improve or resolve after several months. I recommend she give this a trial for the benefits discussed. Reschedule IUD exam check for 4 weeks, plan to revisit her concerns at that visit unless she has any concerns or problems that need to be discussed sooner, she is welcome to call the office with her concerns. The patient expressed understanding and agreement with the plan of care. All of her questions and concerns were addressed to the best of my ability. This note is constructed using voice recognition software. While every effort has been made to ensure accuracy, international marketing specialist errors may have been included. Orders: Orders AMB HCG Urine Test 02/14/25 Z32.02 - Encounter for test, result negative AMB Urinalysis Automated 02/14/25 M54.9 - Dorsalgia, unspecified Coding Level of Care Code Est Pt Level 3 (00803) Diagnoses Encounter to discuss test results Z71.2 IUD surveillance Z30.431
== END 2025-02-15 08:16 | disposition home or self-care (01) ==
LOC: HO.HWS 14:17
PROVIDERS: PCP Internal Medicine; Visit Provider Advanced Practice Midwife
DX: Z71.2 Person consulting for explanation of examination or test findings (principal); Z30.431 Encounter for routine checking of intrauterine contraceptive device; Z32.02 Encounter for pregnancy test, result negative; M54.9 Dorsalgia, unspecified
CPT/HCPCS: 99213

== ENCOUNTER → 2025-02-14 14:17 | Outpatient (BNVA) | payer OTHER, SELFPAY | PROVIDERS: PCP Internal Medicine; Visit Provider Advanced Practice Midwife | DX: Z71.2 Person consulting for explanation of examination or test findings (principal); Z30.431 Encounter for routine checking of intrauterine contraceptive device; N39.3 Stress incontinence (female) (male); M54.9 Dorsalgia, unspecified; Z32.02 Encounter for pregnancy test, result negative | CPT/HCPCS: 81003; 81025 ==

== ENCOUNTER 2025-03-15 14:29 | Outpatient (REF) | payer OTHER, SELFPAY ==
[2025-03-15 15:54] LABS: Hematocrit 32.8 % (37.0-47.0); Hemoglobin 9.0 g/dl (12.0-16.0); Mean Corpuscular HGB Conc 27.4 g/dl (31.0-35.0); Mean Corpuscular Hemoglobin 17.4 pg (27.0-33.0); NRBC Abs Auto 0.000 X10*3/uL (0.0-0.012); NRBC Pct Auto 0.0 /100WBC (0.0-0.2); Platelet Count 487 X10*3/uL (160-400); Red Blood Count 5.17 X10*6/uL (4.20-5.50); White Blood Count 6.8 X10*3/uL (4.8-10.8)
[2025-03-15 15:56] LABS: Mean Corpuscular Volume 63.4 fL (80.0-98.0)
== END 2025-03-15 14:30 | disposition home or self-care (01) ==
LOC: HO.LAB 14:29
PROVIDERS: PCP Internal Medicine; Visit Provider Advanced Practice Midwife
DX: Z30.431 Encounter for routine checking of intrauterine contraceptive device (principal); D64.9 Anemia, unspecified
CPT/HCPCS: 36415; 85027

== ENCOUNTER 2025-03-15 14:29 | Outpatient (AMB) | payer OTHER, SELFPAY ==
[2025-03-15 14:31] VITALS: BP 120/76; BMI 37.6
--- NOTE | 2025-03-15 14:31 | A.OFFVIS_ITS ---
Vital Signs 03/15/25 14:31 Height 5 ft 6 in Weight 233 lb BMI 37.6 BP 120/76 Intake Visit Reasons: IUD Check Project Management Specialist: Project Management Specialist Present (Matilde) Allergies bupropion (From Wellbutrin) Allergy (Intermediate, Verified 03/15/25 14:33) changes in mood buspirone Allergy (Intermediate, Verified 03/15/25 14:33) changes in mood shellfish derived (shellfish) Adverse Reaction (Severe, Verified 03/15/25 14:33) Anaphylaxis HPI Comments Details: Patient is here today for a follow up IUD post insertion check up. She reports the bleeding volume is much meeting coordinator, recent cycle lasted 13 days. History of AUB and anemia, she was unable to tolerate the iron supplements due to significant constipation. She admits to not hydrating well. Tearful today discussing her struggles with depression. [facility] Medical History IUD (intrauterine device) in place Abnormal uterine bleeding (AUB) SAM (generalized anxiety disorder) Mild recurrent major depression Hand numbness Right sided sciatica Class 2 obesity with body mass index (BMI) of 37.0 to 37.9 in adult Right foot pain Essential hypertension Migraine Surgical History History of eye surgery History of hernia repair History of tonsillectomy History of appendectomy Family History Father Diabetes Hypertension Mother Diabetes Hypertension Asthma Paternal Grandmother Cancer Paternal Grandmother Uterine cancer Maternal Aunt Uterine cancer Maternal Uncle Esophageal cancer Social History Housing: Apartment Alcohol intake: current Alcohol intake frequency: holidays/special occasions only Alcohol type: beer Patient Tobacco Use Status: Current everyday Tobacco user Tobacco use type: Cigarette Cigarettes Per Day: 3 e-Cigarette/Vaping Use: Never Used Second Hand Smoke Exposure: No service: No Current occupational status: employed Current occupation: [employer] Current occupational exposures/hazards: No Cognitive needs: No Hearing needs: No Vision needs: Yes Female Reproductive History Menstrual Age of Menarche: 8 Date of last pap smear: 01/04/25 ([place] neg hpv) History of abnormal pap smear: Yes Review of Systems Const All systems reviewed & are unremarkable except as noted in HPI and below Physical Exam Vital Signs: Last Vital Signs BP 120/76 03/15/25 14:31 BMI result Body Mass Index 37.6 Const General: cooperative, healthy appearing and no acute distress Orientation/consciousness: patient oriented x3 GI Inspection: Yes normal to inspection Palpation (GI): Soft to palpation and Other GI palpation findings present (Nontender) Rectal Exam - Female: visual inspection normal General: Yes bladder normal to palpation External Female Exam: normal appearance of the urethra Speculum Exam - Vagina: normal appearance of the vagina, normal palpation and normal vaginal discharge Speculum Exam - Cervix: normal appearance of the cervix, normal palpation and Other cervical findings present (IUD strings present at the os) Bimanual exam- vagina & uterus: normal bimanual exam, normal palpation, uterine size normal, bladder normal to palpation, normal palpation, uterine shape normal and non-tender Bimanual Exam- Adnexa, other: normal adnexae Neuro General: patient oriented x3 Assessment & Plan Assessment & Plan (1) IUD check up: Code(s): Z30.431 - Encounter for routine checking of intrauterine contraceptive device Plan: Reviewed bleeding patterns typical for post IUD insertion, most likely we will reduce over the next 3 to six-month. Patient to be scheduled for her annual exam visit before leaving the office today. Advised to follow up PRN if there is any concerns for the IUD or bleeding patterns. The patient expressed understanding and agreement with the plan of care. All of her questions and concerns were addressed to the best of my ability. (2) Anemia: Code(s): D64.9 - Anemia, unspecified Qualifiers: Anemia type: unspecified type Qualified Code(s): D64.9 - Anemia, unsp ecified Plan Plan follow up CBC, await results for final plan of care. Consider iron infusions if indicated. Iron food list provided and reviewed. Encouraged i ncreased oral hydration on a routine basis. The patient expressed understanding and agreement with the plan of care. All of her questions and concerns were addressed to the best of my ability. This note is constructed using voice recognition software. While every effort has been made to ensure accuracy, bleach maker errors may have been included. Orders: Orders Complete Blood Count no Diff Today D64.9 - Anemia, unspecified Coding Level of Care Code Est Pt Level 3 (51194) Diagnoses IUD check up Z30.431 Anemia, unspecified type D64.9 Anemia type: unspecified type
== END 2025-03-15 15:39 | disposition home or self-care (01) ==
LOC: HO.HWS 14:30
PROVIDERS: PCP Internal Medicine; Visit Provider Advanced Practice Midwife
DX: Z30.431 Encounter for routine checking of intrauterine contraceptive device (principal); D64.9 Anemia, unspecified
CPT/HCPCS: 99213